=== PATIENT | male | born 1960 | race Caucasian/White ===

== ENCOUNTER 2022-03-28 09:43 | Outpatient (CLI) | payer OTHER, SELFPAY ==
[2022-03-28 14:05] LABS: C Reactive Protein* 6.5 mg/dL (0.5-1.0)
[2022-03-28 14:43] LABS: Erythrocyte SedimentationRate* 63 mm/hr (2-15)
== END 2022-03-28 09:44 | disposition home or self-care (01) ==
LOC: KYNREF 09:47
PROVIDERS: PCP Nurse Practitioner Family; Visit Provider Nurse Practitioner Family
DX: M25.50 Pain in unspecified joint (principal); M79.10 Myalgia, unspecified site
CPT/HCPCS: 36415; 85651; 86140

== ENCOUNTER 2022-06-18 15:51 | Emergency (ER) | payer OTHER, SELFPAY ==
[2022-06-18] VITALS (25 sets, daily range): BP systolic 115–141; BP diastolic 89–124; PULSE 104–163; RESP 22; TEMP 36; O2SAT 94–97; BMI 34.2
--- NOTE | 2022-06-18 16:14 | CRLHL7_ITS ---
For Patients: As a result of the Cures Act, medical imaging exams and procedure reports are released immediately into your electronic medical record. You may view this report before your referring provider. If you have questions, please contact your health care provider. INDICATION: Syncope TECHNIQUE: Chest radiograph 2 views COMPARISON: 10/27/2010 FINDINGS: Cardiac silhouette enlarged, similar contour from October 2010. Mediastinal and perihilar contours unchanged. No new focal lung opacities. Costophrenic sulci clear. Bones and soft tissues unremarkable. IMPRESSION: 1. Persistent cardiomegaly. No underlying CHF pattern on current study. No focal infiltrates. Dictated by Damion Reyes MD @ 06/18/2022 5:39:48 PM Dictated by: Damion Reyes MD @ 06/18/2022 17:39:54 (Electronically Signed)
--- NOTE | 2022-06-18 16:31 | ED_ITS ---
HPI - Arrhythmia/Palpitations General Date Seen: 06/18/22 Chief Complaint: Arrhythmia/Palpitations Stated Complaint: possible afib Time Seen by Provider: 06/18/22 15:57 Source: patient and family Mode of arrival: ambulatory Limitations: no limitations History of Present Illness HPI narrative: Patient is 61-year-old gentleman with a previous history of atrial fibrillation, not on any anticoagulation presents here with probably a week-long history of a cough some mild shortness of breath, this is acute for him usually that he has is AFib, but today he noticed that his heart rate was little elevated when he did his blood pressure. His previous days he did not notice this. He has had the shortness of breath when he exerts himself for approximately 1 week and also the cough, but multiple other family members have a slight cough any wondered if this was the reason. He has had previous cardioversion [facility], and was on anticoagulation for some time but this was stopped. Sounds like he did have FABIENNE up there. Also had ablation done at [facility] to in the past. 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 Has not missed any medications, does not use alcohol, denies any dehydration, Related Data Home Medications Medication Instructions Recorded Confirmed candesartan 4 mg tablet 4 mg PO 11/24/21 03/28/22 sildenafil 100 mg tablet 100 mg PO 11/24/21 03/28/22 torsemide 20 mg tablet 20 mg PO DAILY 11/24/21 03/28/22 metoprolol succinate 50 mg 50 mg PO 03/28/22 03/28/22 tablet,extended release 24 hr Allergies Allergy/AdvReac Type Severity Reaction Status Date / Time hydrochlorothiazide Allergy Verified 06/18/22 15:55 hydroxychloroquine Allergy Verified 06/18/22 15:55 lisinopril Allergy Verified 06/18/22 15:55 ragweed pollen Allergy Verified 06/18/22 15:55 triamterene Allergy Verified 06/18/22 15:55 Review of Systems Status of ROS: Reports: 10 or more systems reviewed and unremarkable except as noted in History and below PFSH PFSH Social History Smoking Status: Former smoker Do you use any of these nicotine containing products: None Second hand tobacco smoke exposure: No How often do you have a drink containing alcohol: 2-4 times a month How many standard drinks containing alcohol do you have on a typical day: 1 or 2 How often do you have six or more drinks on one occasion: Never AUDIT-C Alcohol total score: 2 Non-prescribed substance use: denies use service: No Exam Narrative: Exam Narrative: Patient is speaking normally, no problem with slurring words, oriented x3. Head eyes ears nose and throat exam show equal pupils, no scleral icterus, extraocular muscles are normal, no facial droop, speech is normal, trachea normal and midline. Thyroid normal midline palpable not enlarged. Chest shows symmetrical rise bilaterally, normal auscultation with no wheezes, no increased work of breathing, no overt bruising or lesions seen, no tenderness is noted on auscultation. Heart sounds normal with no S3-S4 no murmurs clicks or gallops. Abdomen shows no obvious masses or hepatosplenomegaly, no organomegaly, bowel sounds are normal in all quadrants. No tenderness is noted also in all quadrants. Upper and lower extremities show normal power, normal range of motion, pulses are normal, sensations normal, fine motor movements are normal, pelvis is stable to rocking. Cervical spine shows normal range of motion, and palpably not tender. Thoracic spine shows normal range of motion, and palpably not tender, lumbar spine shows no tenderness to palpation percussion and is otherwise normal range of motion. Skin shows no rashes, petechiae or eccymosis. Const: Vital Signs, click to edit/add: Vital Signs - 24 hr 06/18/22 15:55 06/18/22 18:12 06/18/22 16:21 Temperature 96.8 F L Pulse Rate 142 H 134 H Pulse Rate [Apical ] 158 H Respiratory Rate 22 Blood Pressure Blood Pressure [Le ft Upper Arm] 115/101 H Pulse Oximetry 97 Oxygen Delivery Me thod Room Air 06/18/22 16:30 06/18/22 16:35 06/18/22 16:45 Temperature Pulse Rate 163 H 152 H 150 H Pulse Rate [Apical ] Respiratory Rate Blood Pressure 120/101 H Blood Pressure [Le ft Upper Arm] Pulse Oximetry 95 95 96 Oxygen Delivery Me thod 06/18/22 17:00 06/18/22 17:02 06/18/22 17:15 Temperature Pulse Rate 133 H 139 H Pulse Rate [Apical ] Respiratory Rate Blood Pressure 119/107 H Blood Pressure [Le ft Upper Arm] Pulse Oximetry 95 97 Oxygen Delivery Me thod 06/18/22 17:30 06/18/22 17:32 06/18/22 17:45 Temperature Pulse Rate 123 H 104 H 128 H Pulse Rate [Apical ] Respiratory Rate Blood Pressure 120/89 Blood Pressure [Le ft Upper Arm] Pulse Oximetry 96 96 95 Oxygen Delivery Me thod 06/18/22 18:00 06/18/22 18:02 06/18/22 18:15 Temperature Pulse Rate 130 H 119 H 135 H Pulse Rate [Apical ] Respiratory Rate Blood Pressure 133/96 H Blood Pressure [Le ft Upper Arm] Pulse Oximetry 94 95 96 Oxygen Delivery Me thod Documenting provider has reviewed patient's vital signs: yes Course Course Hospital Course: Explained to the patient is , we do not do T ease here, instead we can do rate control, given his time course that I do not think he is a good candidate least at this time as there is no emergent need to do cardioversion. Would suggest workup and then I can talk to [facility], where he gets his cardiology at that point about disposition. Him and his for initially thinking they may want to just go to [facility], explained this would be against medical advice, and then they changed their mind and said they would stay. Reevaluation(s) Reevaluation #1: Patient is 1. On the waiting list for [facility], although this can change, this is good news. Time: 17:33 Reevaluation #2: Patient is been accepted to [facility], I discussed the case with the hospitalist. Consultations Consultation #1: Case was discussed with from [facility], she informed me that the last time when he had was in atrial fibrillation he developed a cardiomyopathy, and he would be better suited, to be cardioverted earlier than later secondary to this being known. She recommended the starting him on heparin, giving him a little digoxin also, keeping him on the beta- edmond and giving him oral beta-edmond with that, and transferring a up to [facility] when a bed becomes available for FABIENNE and cardioversion. Discussed with the patient, they are on board for this. Time: 17:16 Vital Signs Vital signs: Initial Vital Signs Temperature 96.8 F L 06/18/22 15:55 Temperature Source Temporal Artery Scan 06/18/22 15:55 Pulse Rate 158 H 06/18/22 15:55 Pulse Rhythm 06/18/22 15:55 Respiratory Rate 22 06/18/22 15:55 Blood Pressure 115/101 H 06/18/22 15:55 Blood Pressure Mean 105 06/18/22 15:55 Blood Pressure Position Supine 06/18/22 15:55 Oxygen Delivery Method 06/18/22 15:55 Vital Signs Temperature 96.8 F L 06/18/22 15:55 Pulse Rate 158 H 06/18/22 15:55 Respiratory Rate 22 06/18/22 15:55 Blood Pressure 115/101 H 06/18/22 15:55 Oxygen Delivery Method 06/18/22 15:55 Temperature 96.8 F L 06/18/22 15:55 Pulse Rate 135 H 06/18/22 18:15 Respiratory Rate 22 06/18/22 15:55 Blood Pressure 133/96 H 06/18/22 18:02 Pulse Oximetry 96 06/18/22 18:15 Oxygen Delivery Method 06/18/22 15:55 MDM - Arrhythmia/Palpitations MDM Narrative Medical decision making narrative: Differential diagnosis includes but is not limited to psychosocial stress, thyroid abnormalities, CHF, SVT, atrial fibrillation, ventricular tachycardia and ventricular fibrillation. This includes the life-threatening complications of heart failure, V-tach, and VFib Medical Records Attestation: I reviewed the patient's medical records. Lab Data Attestation: I reviewed the patient's lab results. Labs: Lab Results 06/18/22 06/18/22 06/18/22 Range/Units 16:34 16:34 16:34 WBC 8.11 (4.50-11.00) K/uL RBC 4.79 (4.30-5.90) m/uL Hgb 13.6 (13.5-17.5) gm/dL Hct 41.8 (37.0-53.0) % MCV 87 (80-100) fL MCH 28 (26-34) pg MCHC 33 (32-36) gm/dL RDW Coeff of [place] 13.8 (11.5-15.5) % Plt Count 324 (140-440) K/uL Neut % (Auto) 67.4 (42.0-72.0) % Lymph % (Auto) 19.4 L (20-44) % Stafford % (Auto) 11.2 H (0.0-11.0) % Eos % (Auto) 1.2 (0.0-7.0) % Baso % (Auto) 0.2 (0.0-3.0) % Neut # (Auto) 5.46 (1.7-7.0) K/uL Lymph # (Auto) 1.60 (0.90-2.90) K/uL Stafford # (Auto) 0.90 (0.00-0.90) K/UL Eos # (Auto) 0.10 (0.00-0.50) K/uL Baso # (Auto) 0.02 (0.00-0.30) K/uL INR 1.07 (0.91-1.10) APTT 30 (23-33) Seconds D-Dimer Quant (PE/DVT) 0.85 H (0.00-0.50) ug/ml Sodium 141 (135-149) mmol/L Potassium 3.7 (3.6-5.1) mmol/L Chloride 104 (96-114) mmol/L Carbon Dioxide 29 (20-32) mmol/L BUN 25 (7-30) mg/dL Creatinine 1.0 (0.5-1.5) mg/dL Estimated Creat Clear 85.14 Estimated GFR 86 ml/min Glucose 126 H (60-115) mg/dL Calcium 8.7 (8.4-10.6) mg/dL Magnesium (1.5-2.6) mg/dL NT-Pro-B Natriuret Pep 3350 pg/mL TSH (0.270-4.20) uIU/mL SARS-CoV-2 (PCR) (Negative) Influenza Type A (PCR) (Negative) Influenza Type B (PCR) (Negative) RSV (PCR) (Negative) POC Troponin I (0.01-0.04) ng/ml 06/18/22 06/18/22 06/18/22 Range/Units 16:34 16:34 16:34 WBC (4.50-11.00) K/uL RBC (4.30-5.90) m/uL Hgb (13.5-17.5) gm/dL Hct (37.0-53.0) % MCV (80-100) fL MCH (26-34) pg MCHC (32-36) gm/dL RDW Coeff of [place] (11.5-15.5) % Plt Count (140-440) K/uL Neut % (Auto) (42.0-72.0) % Lymph % (Auto) (20-44) % Stafford % (Auto) (0.0-11.0) % Eos % (Auto) (0.0-7.0) % Baso % (Auto) (0.0-3.0) % Neut # (Auto) (1.7-7.0) K/uL Lymph # (Auto) (0.90-2.90) K/uL Stafford # (Auto) (0.00-0.90) K/UL Eos # (Auto) (0.00-0.50) K/uL Baso # (Auto) (0.00-0.30) K/uL INR (0.91-1.10) APTT (23-33) Seconds D-Dimer Quant (PE/DVT) (0.00-0.50) ug/ml Sodium (135-149) mmol/L Potassium (3.6-5.1) mmol/L Chloride (96-114) mmol/L Carbon Dioxide (20-32) mmol/L BUN (7-30) mg/dL Creatinine (0.5-1.5) mg/dL Estimated Creat Clear Estimated GFR ml/min Glucose (60-115) mg/dL Calcium (8.4-10.6) mg/dL Magnesium 2.3 (1.5-2.6) mg/dL NT-Pro-B Natriuret Pep pg/mL TSH 2.310 (0.270-4.20) uIU/mL SARS-CoV-2 (PCR) (Negative) Influenza Type A (PCR) (Negative) Influenza Type B (PCR) (Negative) RSV (PCR) (Negative) POC Troponin I 0.01 (0.01-0.04) ng/ml 06/18/22 Range/Units 16:43 WBC (4.50-11.00) K/uL RBC (4.30-5.90) m/uL Hgb (13.5-17.5) gm/dL Hct (37.0-53.0) % MCV (80-100) fL MCH (26-34) pg MCHC (32-36) gm/dL RDW Coeff of [place] (11.5-15.5) % Plt Count (140-440) K/uL Neut % (Auto) (42.0-72.0) % Lymph % (Auto) (20-44) % Stafford % (Auto) (0.0-11.0) % Eos % (Auto) (0.0-7.0) % Baso % (Auto) (0.0-3.0) % Neut # (Auto) (1.7-7.0) K/uL Lymph # (Auto) (0.90-2.90) K/uL Stafford # (Auto) (0.00-0.90) K/UL Eos # (Auto) (0.00-0.50) K/uL Baso # (Auto) (0.00-0.30) K/uL INR (0.91-1.10) APTT (23-33) Seconds D-Dimer Quant (PE/DVT) (0.00-0.50) ug/ml Sodium (135-149) mmol/L Potassium (3.6-5.1) mmol/L Chloride (96-114) mmol/L Carbon Dioxide (20-32) mmol/L BUN (7-30) mg/dL Creatinine (0.5-1.5) mg/dL Estimated Creat Clear Estimated GFR ml/min Glucose (60-115) mg/dL Calcium (8.4-10.6) mg/dL Magnesium (1.5-2.6) mg/dL NT-Pro-B Natriuret Pep pg/mL TSH (0.270-4.20) uIU/mL SARS-CoV-2 (PCR) Negative SARS-CoV-2 (Negative) Influenza Type A (PCR) Negative PCR FLU A (Negative) Influenza Type B (PCR) Negative PCR FLU B (Negative) RSV (PCR) Negative PCR RSV (Negative) POC Troponin I (0.01-0.04) ng/ml Imaging Data Chest x-ray: Attestation: I have reviewed the pertinent imaging results. My impression: Cardiomegaly no acute findings Radiologist's impression: Patient: EDISON OLIVARES Facility: [facility] Site . Site : 1960 Study: XRay Chest 2 VIEW-06/18/2022 5:12:36 PM Ordering Physician: Jennifer Perales Final Report: INDICATION: Syncope TECHNIQUE: Chest radiograph 2 views COMPARISON: 10/27/2010 FINDINGS: Cardiac silhouette enlarged, similar contour from October 2010. Mediastinal and perihilar contours unchanged. No new focal lung opacities. Costophrenic sulci clear. Bones and soft tissues unremarkable. IMPRESSION: 1. Persistent cardiomegaly. No underlying CHF pattern on current study. No focal infiltrates. Dictated by Damion Reyes MD @ 06/18/2022 5:39:48 PM Dictated by: Damion Reyes MD @ 06/18/2022 17:39:54 (Electronic Signature) ECG Data Attestation: I personally reviewed and interpreted this ECG as follows: ECG interpretation date: 06/18/22 ECG interpretation time: 16:35 Interpretation: Occasional PVCs at 160, no acute ST wave changes, no old EKG to compare to Critical Care Time Critical Care Time Critical Care Time: Yes Attestation: The patient required my highest level preparedness to intervene emergently and I personally spent this critical care time directly and personally managing the patient. This critical care time included: Obtaining a history; Examining the patient; Pulse oximetry; Ordering and reviewing of studies; Arranging urgent treatment with development of a management plan; Evaluation of patients response to treatment; Frequent reassessment discussions with other providers. This critical care time was performed to assess and manage the high probability of imminent life-threatening deterioration that could result in multiorgan failure. It was exclusive of separate billable procedures and treating other patients and teaching time. Total Critical Care Time in Minutes: 45 Discharge Plan Discharge Clinical Impression: Cardiomyopathy, Atrial fibrillation with rapid ventricular response Patient Disposition: Xfer [facility] Discharge Location: [facility] Prescriptions: No Action torsemide 20 mg tablet 20 mg PO DAILY Label Comments: TAKE ONE TABLET BY MOUTH ONE TIME DAILY candesartan 4 mg tablet 4 mg PO Label Comments: TAKE ONE TABLET BY MOUTH ONE TIME DAILY sildenafil 100 mg tablet 100 mg PO Label Comments: TAKE 1 TABLET BY MOUTH NEEDED ONE HOUR PRIOR TO INTERCOURSE metoprolol succinate 50 mg tablet extended release 24 hr 50 mg PO Label Comments: TAKE ONE TABLET BY MOUTH ONE TIME DAILY IN THE evening Stand Alone Forms: [employer] Info Instructions
[2022-06-18 16:43] LABS: Basophils Absolute Auto 0.02 K/uL (0.00-0.30); Basophils Percent Auto 0.2 % (0.0-3.0); Eosinophils Percent Auto 1.2 % (0.0-7.0); Hematocrit 41.8 % (37.0-53.0); Hemoglobin* 13.6 gm/dL (13.5-17.5); Immature Granulocytes Abs Auto 0.05 K/uL (0.00-0.30); Immature Granulocytes Pct Auto 0.6 %; Lymphocytes Percent Auto 19.4 % (20-44); Mean Corpuscular HGB Conc 33 gm/dL (32-36); Mean Corpuscular Hemoglobin 28 pg (26-34); Mean Corpuscular Volume 87 fL (80-100); Monocytes Percent Auto 11.2 % (0.0-11.0); Neutrophils Absolute Auto 5.46 K/uL (1.7-7.0); Neutrophils Percent Auto 67.4 % (42.0-72.0); Platelet Count* 324 K/uL (140-440); RDW Coefficient of Variation % 13.8 % (11.5-15.5); Red Blood Count 4.79 m/uL (4.30-5.90); Slide Review Reflex No; White Blood Count* 8.11 K/uL (4.50-11.00)
[2022-06-18] MEDS: 0.9 % SODIUM CHLORIDE 1000 ml 1,000 ML IV (16:45)
[2022-06-18] MEDS: METOPROLOL TARTRATE 1 MG/ML inj 10 MG IVP (16:45)
[2022-06-18 17:02] LABS: Chloride* 104 mmol/L (96-114); Potassium* 3.7 mmol/L (3.6-5.1); Sodium* 141 mmol/L (135-149)
[2022-06-18 17:03] LABS: INR 1.07 (0.91-1.10); Prothrombin Time 14.6 Seconds
[2022-06-18 17:04] LABS: Partial Thromboplastin Time* 30 Seconds (23-33)
[2022-06-18 17:05] LABS: Blood Urea Nitrogen* 25 mg/dL (7-30); Carbon Dioxide* 29 mmol/L (20-32); Est. Creatinine Clearance* 85.14; Estimated Glomerular Filt Rate 86 ml/min; Magnesium* 2.3 mg/dL (1.5-2.6); Troponin, Point-of-Care* 0.01 ng/ml (0.01-0.04)
[2022-06-18 17:06] LABS: Calcium* 8.7 mg/dL (8.4-10.6); D Dimer Quantitative* 0.85 ug/ml (0.00-0.50); Glucose* 126 mg/dL (60-115)
[2022-06-18 17:15] LABS: NT Pro B Type NatriureticPept* 3350 pg/mL
--- NOTE | 2022-06-18 17:17 | ED.NURSE ---
Pt accepted to [facility]. Currently on waiting list.
[2022-06-18 17:37] LABS: PCR FLU A Negative PCR FLU A (Negative); PCR FLU B Negative PCR FLU B (Negative); PCR RSV Negative PCR RSV (Negative)
[2022-06-18 17:50] LABS: SARS PCR* Negative SARS-CoV-2 (Negative)
[2022-06-18] MEDS: HEPARIN 25,000 UNIT/500 ML BAG 20 UNIT IV (17:53)
[2022-06-18] MEDS: HEPARIN 5,000 UNIT/0.5 ML INJ 4000 UNIT IVP (17:54)
[2022-06-18] MEDS: DIGOXIN 250 MCG/ML inj 500 MCG IV (18:12)
[2022-06-18] MEDS: METOPROLOL TARTRATE 25 MG TABLET PO (18:14)
--- NOTE | 2022-06-18 18:28 | ED.NURSE ---
Digoxin administration delayed due to waiting on medication from pharmacy.
--- NOTE | 2022-06-18 20:01 | ED.NURSE ---
Called dispatch and set up ride for patient to [facility] [place]. Ambulance will be here in 20 min, transfer packet prepared. understands plan of care and harry room number for patient. will be up there tomorrow to visit patient. Report given to JENNIFER Dunn @ [facility] [place]. Mona in agreement with plan of care and knows last oral intake at 1400 today.
== END 2022-06-18 20:25 | disposition short-term general hospital (02) ==
PROVIDERS: Emergency Provider Family Medicine; PCP Nurse Practitioner Family
DX: I48.20 Chronic atrial fibrillation, unspecified (principal); I42.9 Cardiomyopathy, unspecified
CPT/HCPCS: 36415; 71046; 80048; 83735; 83880; 84443; 84484; 85025; 85379; 85610; 85730; 87502; 87634; 87635; 93005; 96374; 96375; 99285; 99291; A9270; J1160; J1644; J7030

== ENCOUNTER 2022-06-18 20:14 | Outpatient (CLI) | payer OTHER, SELFPAY | END 2022-06-18 20:15 | disposition home or self-care (01) | LOC: AMB 06-19 04:03 | PROVIDERS: PCP Nurse Practitioner Family; Visit Provider Family Medicine | DX: I48.91 Unspecified atrial fibrillation (principal); R06.02 Shortness of breath; R05.9 Cough, unspecified | CPT/HCPCS: A0425; A0434 ==

== ENCOUNTER 2022-11-01 10:20 | Day surgery (SDC) | payer OTHER, SELFPAY ==
--- NOTE | 2022-10-24 08:46 | SUR.PREOP ---
Pt's surgery for May postponed until 11/01/22 due to need for a colonoscopy. Did a brief phone visit today; he denies questions. He had his preop H&P yesterday with Rui Westbrook at [facility].
[2022-11-01] VITALS (35 sets, daily range): BP systolic 114–166; BP diastolic 71–98; PULSE 49–79; RESP 12–18; TEMP 36.6–37; O2SAT 90–97; BMI 34.9; BMI 33.6
[2022-11-01] MEDS: LACTATED RINGERS 1000 ML 1,000 ML 100 ML IV ×2 (10:30→12:40)
--- NOTE | 2022-11-01 10:48 | CRLHL7_ITS ---
For Patients: As a result of the Cures Act, medical imaging exams and procedure reports are released immediately into your electronic medical record. You may view this report before your referring provider. If you have questions, please contact your health care provider. Indication: POST OP Technique: Two views right knee Findings/Impression: Hardware from a right total knee arthroplasty is in satisfactory position. Bone alignment is normal. No sign of acute fracture. Postop changes are within normal limits. Dictated by Vincenzo Funk MD @ 11/01/2022 3:37:31 PM (Electronically Signed)
[2022-11-01] MEDS: OXYCODONE (CR) 10 MG TAB.ER.12H PO (11:06)
[2022-11-01] MEDS: ACETAMINOPHEN 500 MG TABLET 1000 MG PO ×2 (11:06→18:33)
[2022-11-01] MEDS: SODIUM CHLORIDE 0.9 % (FLUSH) 10 ML SYRINGE IVF (11:20)
[2022-11-01] MEDS: MIDAZOLAM HCL 1 MG/ML inj IVP (12:05)
[2022-11-01] MEDS: fentaNYL 100 MCG/2 ML inj IVP (12:05)
--- NOTE | 2022-11-01 12:08 | W.PM.NB ---
Nerve Block Nerve Block Time Seen by Provider: 12:06 Date Seen: 11/01/22 Type of block requested by surgeon for post-operative analgesia: adductor canal Time out performed: Yes Verification of patient name: Yes Verification of date of : Yes Site marking: site marked Name of person performing procedure: Kareem Continuous monitoring Was continuous monitoring of O2 sat, B/P, clinical research monitor, recorded every 15 minutes?: Yes Procedure Checklist: sterile prep, needles and gloves Ultrasound guided. Images saved: Yes Medications given in 5ml increments after negative aspiration: Ropivicaine %: 0.5 mL: 20 Needle gauge: 20 Decadron (mg): 10 Precedex (mcg): 25 Patient tolerated procedure well: Yes Additional comments: Needle noted adjacent to nerve Block Charges Block Charge (with Pro Fee): Femoral Nerve Use of Ultrasound Machine for Block: Yes- US Guidance/pain block
--- NOTE | 2022-11-01 12:09 | W.PM.NB ---
Nerve Block Nerve Block Time Seen by Provider: 12:07 Date Seen: 11/01/22 Type of block requested by surgeon for post-operative analgesia: geniculars Side: right Time out performed: Yes Verification of patient name: Yes Verification of date of : Yes Site marking: site marked Name of person performing procedure: Kareem Continuous monitoring Was continuous monitoring of O2 sat, B/P, air sampling and monitoring, recorded every 15 minutes?: Yes Procedure Checklist: sterile prep, needles and gloves Medications given in 5ml increments after negative aspiration: Ropivicaine %: 0.5 mL: 9 Needle gauge: 25 Patient tolerated procedure well: Yes Block Charges Block Charge (with Pro Fee): Genicular Nerve Block Use of Ultrasound Machine for Block: No
--- NOTE | 2022-11-01 12:10 | W.ANESCHARGE ---
Anesthesia Charges Start Date/Time Anesthesia Start Date: 11/01/22 Anesthesia Start Time: 12:12 Stop Date/Time Anesthesia Stop Date: 11/01/22 Anesthesia Stop Time: 14:42
--- NOTE | 2022-11-01 12:23 | SUR.PREOP ---
TIME?OUT:?1204 PT/RN/MDA?VERIFICATION?OF?SURGICAL?SITE,?PROCEDURE,?AND?CONSENT OBTAINED?PRIOR?TO?INVASIVE?PROCEDURE. All in agreement.
[2022-11-01] MEDS: CEFAZOLIN 2 GM in 0.9 % SODIUM CHLORIDE Mini-bag 100 ML IVPB ×2 (12:30→18:33)
[2022-11-01] MEDS: TRANEXAMIC ACID 100 MG/ML INJ 1000 MG IV (12:35)
--- NOTE | 2022-11-01 13:58 | PM.ORPRC ---
Procedure Note Date of procedure: 11/01/22 Procedure: PREOPERATIVE DIAGNOSIS: 1. Right knee osteoarthritis, primary, severe POSTOPERATIVE DIAGNOSIS: 1. Right knee osteoarthritis, primary, severe PROCEDURE: 1. Right total knee arthroplasty SURGEON: Burton Ramirez MD. TANK BUILDER SUPERVISOR: Farhana Warner PA-C; Tyree Casillas PA-C - Of note, a skilled captain's assistant was critical for this case to aid in patient positioning, tissue retraction, limb manipulation/positioning, and closure. ANESTHESIA: Spinal anesthetic IMPLANTS: DePuy J&J all cemented TKA - Attune PS femur size 7, size 7 tibia, 5 poly spacer, 41mm patella TOURNIQUET: 90 min at 300 torr EBL: 50 ml COMPLICATIONS: None evident INDICATIONS: The patient is a pleasant 61-year-old male who has experienced severe right knee pain and difficulty bearing weight. Workup included x-rays which revealed severe osteoarthrosis in the knee. Given the deformity, the dysfunction, and the pain, as well as the failure of nonoperative management, recommendation was made for surgery. FINDINGS: Moderate effusion upon entering the joint. Full-thickness chondral loss broadly throughout the lateral compartment and patellofemoral compartment. Concavity to the patella as well. Significantly soft cancellous bone encountered throughout the both the tibia and femur. A 15 mm in diameter intraosseous cyst was encountered in the posterior central tibia. An 8 mm diameter intraosseous cyst was encountered within the distal pole of the patella. DESCRIPTION OF PROCEDURE: Following a thorough discussion of risks, benefits, and alternatives consent was obtained and the right knee was marked. The patient was brought to the operating room and placed supine on the operating table. Induction of anesthesia was undertaken. 2 g IV Ancef and 1 g tranexamic acid was administered within 1 hr of incision preoperatively. Proper time-out was performed identifying proper patient, site, procedure. The operative extremity was prepped and draped in the appropriate sterile fashion using ChloraPrep after the patient was positioned supine with all bony prominences well padded. A longitudinal, anterior, midline skin incision was made starting approximately 3cm proximal to the superior pole of the patella and advanced distal to the tibial tubercle. A median parapatellar arthrotomy was created. A medial subperiosteal sleeve was created with knife, bowen elevator and curved osteotome. The retropatellar fatpad was resected and the synovium in the suprapatellar pouch excised to visualize the anterior femoral cortex. Femoral preparation was performed via an intramedullary guide. Step drill allowed access into the femoral canal. The distal cutting guide was placed with 6? of valgus and 11 mm cut on the distal femur. Femur was sized using a posterior referencing guide in 5 ? of external rotation. Of note, in addition the posterior condylar axis, we assessed the intercondylar axis and Whitesides line for rotational alignment. This found have a best fit with the sizing noted above. The 4 in 1 cutting block was then placed, and the distal femur shaped accordingly. The box cut was then created and the trial implant inserted to confirm appropriate fit. We turned our attention to the proximal tibia. Extramedullary guide was utilized for cutting with the goal of being 90 degree cut from the mechanical axis of the tibia in the varus/valgus plane utilizing tibial crest as the primary alignment. Initially a 2 mm resection was performed from the medial tibial plateau. An additional 2 mm to require resection. Ultimately, balancing was achieved in both flexion and extension in both varus and valgus. The knee was able to achieve full extension as well comfortably. The patella was initially measured and found have a thickness of 20 mm. It was resected back to approximately 14.5 mm. It was sized to be a best fit with as noted above. This was drilled, trial placed. All trials were placed and found to have an excellent stability and balance. At this stage, trial implants were removed, the knee was thoroughly irrigated with normal saline, and the cement was mixed. After irrigation, the knee was thoroughly dried, and cement placed, with the real tibial and femoral implants placed along with the patella. Trial poly spacer was placed and confirmed to have excellent range of motion and full extension, and the real poly spacer opened and inserted. All extra cement was removed, and a 3 min Betadine soak performed. Finally, a final irrigation round with normal saline was performed. Closure performed with 0 Vicryl and #0 Stratafix for the quad tendon/retinaculum. 2-0 Vicryl for the subcutaneous and 4-0 Stratafix for subcuticular closure. Dressings were applied and the patient was awoken from anesthesia after the tourniquet deflated and transferred the PACU in stable condition. A skilled captain's assistant was critical for this case to aid in patient positioning, tissue retraction, bone exposure, limb manipulation/positioning, patient safety, and closure. PLAN: 1. Weight bear as tolerated operative extremity. 2. 23 hr perioperative antibiotics. 3. Ice. 4. PT/OT consults for ambulation assistance/mobility education. 5. Social work consult for discharge planning. [facility] and Carlos (a preoperative medication he is taking)
--- NOTE | 2022-11-01 14:47 | W.ANESCHARGE ---
Anesthesia Charges Start Date/Time Anesthesia Start Date: 11/01/22 Anesthesia Start Time: 12:12 Stop Date/Time Anesthesia Stop Date: 11/01/22 Anesthesia Stop Time: 14:47
--- NOTE | 2022-11-01 15:10 | PM.IMPN1 ---
Progress Note: A&P Assessment and plan (1) History of atrial fibrillation: Status: Acute (2) PMR (polymyalgia rheumatica): Status: Acute (3) Osteoarthritis of right knee: Problem details: Severe Status: Chronic Plan 1. s/p RTKA -pain control; diet, dvt ppx per surgery 2. Hx of PMR 3. Hx of CAD/HTN/Hx of Diastolic CHF, EF 55% -continue eliquis -continue metoprolol with hold parameters -continue torsemide -continue candesartan 4. Hx of Atrial Fibrillation -on eliquis; metoprolol for rate control 5. Hx of BRYCE -continue cpap 6. Hx of Esophagitis -continue PPI 7. Hx of ZARINA -resum iron supplement at discharge Subjective Date Seen: 11/01/22 Interval history: PROCEDURE: 1.? Right total knee arthroplasty ANESTHESIA:? Spinal anesthetic EBL: ? 50 ml the patient is stable after surgery denies cp, sob, nausea, vomiting knee pain 6/10 hx of BRYCE; has cpap Exam Narrative: Exam Narrative: Gen: no acute distress HEENT: NCAT EOMI mmm CV: IRIR; bradycardic normal s1 s2 Lungs: CTAB Abd: Soft,nt, nd Neuro: Alert, oriented, CN grossly intact; nonfocal screening?exam Psych: appropriate affect MSK: age appropriate muscle mass Skin; Warm, dry no rash on face Const: Vital Signs, click to edit/add: Vital Signs - 24 hr 11/01/22 11:43 11/01/22 12:09 11/01/22 14:42 Temperature 98.6 F 98.1 F Pulse Rate 60 59 L 56 L Respiratory Rate 16 16 18 Blood Pressure 148/81 H 130/77 115/73 Pulse Oximetry 95 95 96 Oxygen Delivery Me thod Room Air Nasal Cannula Oxygen Flow Rate 2 11/01/22 14:48 11/01/22 14:49 11/01/22 14:50 Temperature Pulse Rate 52 L 57 L 52 L Respiratory Rate Blood Pressure Pulse Oximetry 92 94 94 Oxygen Delivery Me thod Room Air Oxygen Flow Rate 11/01/22 14:51 11/01/22 14:52 11/01/22 14:53 Temperature Pulse Rate 53 L 51 L 51 L Respiratory Rate Blood Pressure 114/72 Pulse Oximetry 95 94 91 Oxygen Delivery Me thod Room Air Oxygen Flow Rate 11/01/22 14:54 11/01/22 14:55 11/01/22 14:56 Temperature Pulse Rate 55 L 52 L 55 L Respiratory Rate Blood Pressure Pulse Oximetry 94 94 93 Oxygen Delivery Me thod Oxygen Flow Rate 11/01/22 14:57 11/01/22 14:58 11/01/22 14:59 Temperature Pulse Rate 51 L 54 L 56 L Respiratory Rate Blood Pressure 114/71 Pulse Oximetry 93 92 91 Oxygen Delivery Me thod Oxygen Flow Rate 11/01/22 15:00 11/01/22 15:01 11/01/22 15:02 Temperature Pulse Rate 54 L 52 L 52 L Respiratory Rate Blood Pressure 127/74 Pulse Oximetry 94 94 94 Oxygen Delivery Me thod Oxygen Flow Rate 11/01/22 15:03 11/01/22 15:04 11/01/22 15:05 Temperature 97.8 F Pulse Rate 51 L 52 L 54 L Respiratory Rate 18 Blood Pressure 128/77 Pulse Oximetry 93 93 93 Oxygen Delivery Me thod Room Air Oxygen Flow Rate
--- NOTE | 2022-11-01 15:40 | RESP.RT ---
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 Machine, tubing, cord, nasal mask, found to be clean and in good working order.
[2022-11-01] MEDS: LACTATED RINGERS 1000 ML 1,000 ML 75 ML IV (16:46)
[2022-11-01] MEDS: OXYCODONE 5 MG TABLET PO ×2 (16:46→20:13)
[2022-11-01] MEDS: SENNOSIDES 1 TAB TABLET 2 TAB PO (21:19)
[2022-11-02 00:05] VITALS: BP 132/75; PULSE 56; PULSE 66; RESP 16; TEMP 36.6; O2SAT 94
[2022-11-02] MEDS: ACETAMINOPHEN 500 MG TABLET 1000 MG PO ×2 (00:11→05:47)
[2022-11-02] MEDS: OXYCODONE 5 MG TABLET PO ×5 (00:12→10:34)
[2022-11-02] MEDS: CEFAZOLIN 2 GM in 0.9 % SODIUM CHLORIDE Mini-bag 100 ML IVPB ×2 (02:17→09:57)
[2022-11-02 02:30] VITALS: BP 130/77; PULSE 53; RESP 14; TEMP 36.7; O2SAT 94
[2022-11-02 06:19] LABS: Basophils Percent Auto 0.1 % (0.0-3.0); Hematocrit 34.2 % (37.0-53.0); Hemoglobin* 10.9 gm/dL (13.5-17.5); Immature Granulocytes Pct Auto 0.4 %; Lymphocytes Percent Auto 5.3 % (20-44); Mean Corpuscular HGB Conc 32 gm/dL (32-36); Mean Corpuscular Hemoglobin 28 pg (26-34); Mean Corpuscular Volume 88 fL (80-100); Monocytes Percent Auto 6.7 % (0.0-11.0); Neutrophils Percent Auto 87.5 % (42.0-72.0); Platelet Count* 282 K/uL (140-440); RDW Coefficient of Variation % 12.8 % (11.5-15.5); Red Blood Count 3.88 m/uL (4.30-5.90); White Blood Count* 14.29 K/uL (4.50-11.00)
[2022-11-02 06:23] LABS: Slide Review Reflex No
--- NOTE | 2022-11-02 06:32 | PC.NURSE ---
Pt alert and oriented x3. Afebrile. Pt denies, SOB, chest pain, and N/V. Pt reports 7/10 pain in right?knee, pain managed with PRN and scheduled medications. Pt left knee dressing is CDI. Pt is up SBA with walker and gait belt. Pt is tolerating a regular diet and voiding. Pt slept throughout most of night. Night uneventful.?
[2022-11-02 06:44] LABS: Sodium* 135 mmol/L (135-149)
[2022-11-02 06:48] LABS: Blood Urea Nitrogen* 22 mg/dL (7-30); Creatinine* 0.8 mg/dL (0.5-1.5); Est. Creatinine Clearance* 85.14; Estimated Glomerular Filt Rate 101 ml/min
[2022-11-02 07:00] VITALS: BP 135/81; PULSE 66; RESP 14; TEMP 36.8; O2SAT 95
[2022-11-02] MEDS: SENNOSIDES 1 TAB TABLET 2 TAB PO (08:29)
[2022-11-02] MEDS: METOPROLOL SUCCINATE (XL) 50 MG TAB PO (08:29)
[2022-11-02] MEDS: APIXABAN 5 MG TABLET PO (08:29)
[2022-11-02 09:39] VITALS: BP 140/90; PULSE 50; RESP 14; TEMP 36.8
[2022-11-02] MEDS: TORSEMIDE 20 MG TABLET PO (09:58)
[2022-11-02 10:35] VITALS: BP 131/70; PULSE 71; RESP 14; TEMP 36.7; O2SAT 93
--- NOTE | 2022-11-02 11:05 | PC.NURSE ---
Patient vitally stable. All concerns addressed. Patient discharged to home with .
--- NOTE | 2022-11-02 16:33 | PM.ORPN ---
Subjective Subjective Date Seen: 11/02/22 Principal diagnosis: Status postop day 1 right total knee arthroplasty Interval history: Patient reports doing well. No acute events over night. Complaining of pain and muscle spasms along the right knee. Pain managed with scheduled and PRN medications, ice. DVT prophylaxis: Eliquis, chronic medication for patient, bilateral knee high Ken stockings, SCDs, walking. Denies fevers, chills, aches, N/V, CP, SOB/SHORE, or lightheadedness. PROCEDURE: 1.? Right total knee arthroplasty ANESTHESIA:? Spinal anesthetic EBL: ? 50 ml the patient is stable after surgery denies cp, sob, nausea, vomiting knee pain 6/10 hx of BRYCE; has cpap Ortho Exam Narrative Exam Narrative: -Patient appears comfortable; no apparent acute distress -Alert and oriented times 3 -He is using the urinal in bed -Operative knee moderately swollen; soft tissues supple; no ecchymosis; no erythematous streaking Warmth appropriate. Generalized bilateral ankle edema -Surgical dressing clean, dry, intact; no drainage -Bilateral calfs soft; no significant swelling, edema, tenderness, erythema, discoloration, warmth, or palpable cords -2+ DP/PT pulses, intact dermatomes and myotomes distally (5/5 strength) Const Vital Signs, click to edit/add: Vital Signs - 24 hr 11/01/22 17:25 11/01/22 17:44 11/01/22 18:25 Temperature 98.5 F 98.2 F Pulse Rate Pulse Rate [Pulse Oximeter] 55 L 52 L 73 Respiratory Rate 12 12 12 Blood Pressure Blood Pressure [Right Arm] 153/91 H 166/89 H 141/78 H Pulse Oximetry 95 97 93 Oxygen Delivery Method Room Air Room Air Room Air 11/01/22 19:25 11/01/22 20:25 11/01/22 21:25 Temperature 98.1 F 98.3 F 98.0 F Pulse Rate Pulse Rate [Pulse Oximeter] 62 79 66 Respiratory Rate 14 14 16 Blood Pressure Blood Pressure [Right Arm] 166/88 H 145/83 H 148/81 H Pulse Oximetry 90 92 93 Oxygen Delivery Method Room Air Room Air Room Air 11/02/22 00:05 11/02/22 00:05 11/02/22 00:05 Temperature 97.8 F Pulse Rate Pulse Rate [Pulse Oximeter] 66 56 L Respiratory Rate 16 16 Blood Pressure Blood Pressure [Right Arm] 132/75 Pulse Oximetry 94 94 Oxygen Delivery Method Room Air CPAP 11/02/22 02:30 11/02/22 07:00 11/02/22 07:00 Temperature 98.0 F Pulse Rate Pulse Rate [Pulse Oximeter] 53 L 66 Respiratory Rate 14 14 Blood Pressure Blood Pressure [Right Arm] 130/77 Pulse Oximetry 94 95 Oxygen Delivery Method CPAP 11/02/22 07:00 11/02/22 09:39 11/02/22 10:35 Temperature 98.2 F 98.2 F 98.1 F Pulse Rate 50 L Pulse Rate [Pulse Oximeter] 66 71 Respiratory Rate 14 14 14 Blood Pressure 140/90 H Blood Pressure [Right Arm] 135/81 131/70 Pulse Oximetry 95 93 Oxygen Delivery Method Room Air CPAP Room Air Assessment and Plan Assessment and plan (1) History of atrial fibrillation: Status: Acute (2) PMR (polymyalgia rheumatica): Status: Acute (3) Osteoarthritis of right knee: Problem details: Severe Status: Chronic (4) Status post total knee replacement, right: Problem details: POD 1 Status: Acute Plan - Complete 23 hour perioperative antibiotics. - PT/OT consult for education and assistance. - Social work consult for discharge planning - Prescribed analgesics as needed - DVT prophylaxis: Eliquis, bilateral knee high Ken Hose stockings and SCDs - Anticipation is for discharge to home with spouse today 11/02/2022 if the patient remains medically stable, pain is controlled, and they are safe with mobilization. He was strongly encouraged to be up and moving at least every hour, and not to remain in bed for numerous hours
== END 2022-11-02 11:05 | disposition home or self-care (01) ==
LOC: OR 10:21 → MEDSURG 10:24
PROVIDERS: PCP Nurse Practitioner Family; Visit Provider Orthopaedic Surgery Sports Medicine
PROC: (CPT 27447; principal; 2022-11-01 12:15)
DX: M17.11 Unilateral primary osteoarthritis, right knee (principal); G89.18 Other acute postprocedural pain; I48.91 Unspecified atrial fibrillation; G47.33 Obstructive sleep apnea (adult) (pediatric); M35.3 Polymyalgia rheumatica; Z79.01 Long term (current) use of anticoagulants; I11.0 Hypertensive heart disease with heart failure; I50.40 Unspecified combined systolic (congestive) and diastolic (congestive) heart failure; I25.10 Atherosclerotic heart disease of native coronary artery without angina pectoris
CPT/HCPCS: 27447; 01402; 36415; 64447; 64454; 73560; 76942; 82565; 84132; 84295; 84520; 85025; 97110; 97116; 97161; 97165; 97530; A9270; C1776; J0690; J1100; J2250; J2405; J2704; J2795; J3010; J7120

== ENCOUNTER 2022-12-28 16:15 | Outpatient (RCR) | payer OTHER, SELFPAY | END 2023-04-27 23:59 | disposition home or self-care (01) | PROVIDERS: PCP Nurse Practitioner Family; Visit Provider Orthopaedic Surgery Sports Medicine | DX: M17.12 Unilateral primary osteoarthritis, left knee (principal); Z96.653 Presence of artificial knee joint, bilateral; Z47.1 Aftercare following joint replacement surgery; R26.2 Difficulty in walking, not elsewhere classified; M25.662 Stiffness of left knee, not elsewhere classified; M25.562 Pain in left knee; Z51.89 Encounter for other specified aftercare | CPT/HCPCS: 97110; 97140; 97161; 97164 ==

== ENCOUNTER 2023-01-30 09:48 | Outpatient (CLI) | payer OTHER, SELFPAY | END 2023-01-30 09:49 | disposition home or self-care (01) | PROVIDERS: PCP Nurse Practitioner Family; Visit Provider Nurse Practitioner Family | DX: Z01.818 Encounter for other preprocedural examination (principal) | CPT/HCPCS: 80053; 85025 ==

== ENCOUNTER 2023-02-21 13:59 | Inpatient (IN) | payer OTHER, SELFPAY ==
[2023-02-21] VITALS (29 sets, daily range): BP systolic 68–149; BP diastolic 47–115; PULSE 70–150; RESP 12–25; TEMP 35.4–36.6; O2SAT 90–96; BMI 34.5
[2023-02-21] MEDS: ACETAMINOPHEN 500 MG TABLET 1000 MG PO ×3 (07:00→19:34)
[2023-02-21] MEDS: OXYCODONE (CR) 10 MG TAB.ER.12H PO (07:00)
[2023-02-21] MEDS: LACTATED RINGERS 1000 ML 1,000 ML 100 ML IV (07:30)
--- NOTE | 2023-02-21 07:32 | CRLHL7_ITS ---
For Patients: As a result of the Cures Act, medical imaging exams and procedure reports are released immediately into your electronic medical record. You may view this report before your referring provider. If you have questions, please contact your health care provider. Indication: POST OP Technique: Two views left knee Findings/Impression: Hardware from a left total knee arthroplasty is in satisfactory position. Bone alignment is normal. No sign of acute fracture. Postop changes are within normal limits. Dictated by Vincenzo Funk MD @ 02/21/2023 11:59:41 AM (Electronically Signed)
[2023-02-21] MEDS: dilTIAZem 5 MG/ML inj 10 MG IVP ×2 (08:37→08:55)
[2023-02-21] MEDS: fentaNYL 100 MCG/2 ML inj IVP (09:01)
[2023-02-21] MEDS: MIDAZOLAM HCL 1 MG/ML inj IVP (09:01)
[2023-02-21] MEDS: dilTIAZem HCL 125 MG in 0.9 % SODIUM CHLORIDE 100 ml 100 ML 10 MG IVPB (09:09)
--- NOTE | 2023-02-21 09:12 | SUR.PREOP ---
TIME?OUT:?0900 PT/RN/MDA?VERIFICATION?OF?SURGICAL?SITE,?PROCEDURE,?AND?CONSENT OBTAINED?PRIOR?TO?INVASIVE?PROCEDURE.
[2023-02-21] MEDS: TRANEXAMIC ACID 100 MG/ML INJ 1000 MG IV (09:20)
[2023-02-21] MEDS: CEFAZOLIN 2 GM in 0.9 % SODIUM CHLORIDE Mini-bag 100 ML IVPB ×3 (09:20→22:46)
--- NOTE | 2023-02-21 11:12 | W.ANESCHARGE ---
Anesthesia Charges Start Date/Time Anesthesia Start Date: 02/21/23 Anesthesia Start Time: 09:09 Stop Date/Time Anesthesia Stop Date: 02/21/23 Anesthesia Stop Time: 11:12
--- NOTE | 2023-02-21 11:20 | W.PM.NB ---
Nerve Block Nerve Block Time Seen by Provider: 09:02 Date Seen: 02/21/23 Type of block requested by surgeon for post-operative analgesia: adductor canal Side: left Time out performed: Yes Verification of patient name: Yes Verification of date of : Yes Site marking: site marked Name of person performing procedure: Kareem Continuous monitoring Was continuous monitoring of O2 sat, B/P, electronic device monitor, recorded every 15 minutes?: Yes Procedure Checklist: sterile prep, needles and gloves Ultrasound guided. Images saved: Yes Medications given in 5ml increments after negative aspiration: Ropivicaine %: 0.5 mL: 20 Needle gauge: 20 Decadron (mg): 10 Precedex (mcg): 25 Patient tolerated procedure well: Yes Additional comments: Needle noted adjacent to nerve Block Charges Block Charge (with Pro Fee): Femoral Nerve Use of Ultrasound Machine for Block: Yes- US Guidance/pain block
--- NOTE | 2023-02-21 11:20 | W.PM.NB ---
Nerve Block Nerve Block Time Seen by Provider: 09:02 Date Seen: 02/21/23 Type of block requested by surgeon for post-operative analgesia: geniculars Side: left Time out performed: Yes Verification of patient name: Yes Verification of date of : Yes Site marking: site marked Name of person performing procedure: Kareem Continuous monitoring Was continuous monitoring of O2 sat, B/P, electronic device monitor, recorded every 15 minutes?: Yes Procedure Checklist: sterile prep, needles and gloves Medications given in 5ml increments after negative aspiration: Ropivicaine %: 0.5 mL: 9 Needle gauge: 25 Patient tolerated procedure well: Yes Block Charges Block Charge (with Pro Fee): Genicular Nerve Block Use of Ultrasound Machine for Block: No
--- NOTE | 2023-02-21 11:20 | W.ANESCHARGE ---
Anesthesia Charges Start Date/Time Anesthesia Start Date: 02/21/23 Anesthesia Start Time: 09:09 Stop Date/Time Anesthesia Stop Date: 02/21/23 Anesthesia Stop Time: 11:12
--- NOTE | 2023-02-21 11:44 | W.PM.H&PU ---
History & Physical Update History & Physical Update H&P Reviewed and patient assessed: The following changes are noted below H&P Updates: This morning, the patient was found to be in atrial fibrillation with a rapid ventricular rate. Anesthesia was able to evaluate the patient and communicate with hospitalist team. It was felt safe that we could try beta-edmond and diltiazem drip to help lower the rate acknowledging the patient likely is in atrial fibrillation chronically. If this is successful, it was felt safe to proceed with the total knee replacement today. Indeed, the patient's rate decreased and he remained stable. We are planning to proceed with the left TKA.
--- NOTE | 2023-02-21 11:44 | PM.ORPRC ---
Procedure Note Date of procedure: 02/21/23 Procedure: PREOPERATIVE DIAGNOSIS: 1. Left knee osteoarthritis, primary, severe POSTOPERATIVE DIAGNOSIS: 1. Left knee osteoarthritis, primary, severe PROCEDURE: 1. Left total knee arthroplasty SURGEON: Burton Ramirez MD. PULL OUT OPERATOR: MARTITA De La O - Of note, a skilled child care center assistant director was critical for this case to aid in patient positioning, tissue retraction, limb manipulation/positioning, and closure. ANESTHESIA: Spinal anesthetic EBL: 50ml IMPLANTS: DePuy J&J all cemented TKA - Attune PS femur size 7, size 7 tibia, 5 poly spacer, 41mm patella TOURNIQUET: 90 min at 300 torr COMPLICATIONS: None evident INDICATIONS: The patient is a pleasant 62-year-old male who has experienced severe left knee pain and difficulty bearing weight. Workup included x-rays which revealed severe osteoarthrosis in the knee. Given the deformity, the dysfunction, and the pain, as well as the failure of nonoperative management, recommendation was made for surgery. FINDINGS: Significantly soft cancellous bone throughout all the bony structures that were worked on today in the distal femur, proximal tibia, and even patella. Moderate effusion upon entering the joint. Full-thickness chondral loss with large osteophytes all 3 compartments. DESCRIPTION OF PROCEDURE: Following a thorough discussion of risks, benefits, and alternatives consent was obtained and the left knee was marked. The patient was brought to the operating room and placed supine on the operating table. Induction of anesthesia was undertaken. 2 g IV Ancef and 1 g tranexamic acid was administered within 1 hr of incision preoperatively. Proper time-out was performed identifying proper patient, site, procedure. The operative extremity was prepped and draped in the appropriate sterile fashion using ChloraPrep after the patient was positioned supine with all bony prominences well padded. A longitudinal, anterior, midline skin incision was made starting approximately 3cm proximal to the superior pole of the patella and advanced distal to the tibial tubercle. A median parapatellar arthrotomy was created. A medial subperiosteal sleeve was created with knife, bowen elevator and curved osteotome. The retropatellar fatpad was resected and the synovium in the suprapatellar pouch excised to visualize the anterior femoral cortex. Femoral preparation was performed via an intramedullary guide. Step drill allowed access into the femoral canal. The distal cutting guide was placed with 6 ? of valgus and 11 mm cut on the distal femur. Femur was sized using a posterior referencing guide in 5 ? of external rotation. This found have a best fit with the sizing noted above. The 4 in 1 cutting block was then placed, and the distal femur shaped accordingly. The box cut was then created and the trial implant inserted to confirm appropriate fit. We turned our attention to the proximal tibia. Extramedullary guide was utilized for cutting with the goal of being 90 degree cut from the mechanical axis of the tibia in the varus/valgus plane utilizing tibial crest as the primary alignment. Initially a 2 mm resection was performed from the medial tibial plateau. Ultimately, balancing was achieved in both flexion and extension in both varus and valgus. The knee was able to achieve full extension as well comfortably. The patella was initially measured and found have a thickness of 20 mm. It was resected back to approximately 14 mm. It was sized to be a best fit with as noted above. This was drilled, trial placed. All trials were placed and found to have an excellent stability and balance. At this stage, trial implants were removed, the knee was thoroughly irrigated with normal saline, and the cement was mixed. After irrigation, the knee was thoroughly dried, and cement placed, with the real tibial and femoral implants placed along with the patella. Trial poly spacer was placed and confirmed to have excellent range of motion and full extension, and the real poly spacer opened and inserted. All extra cement was removed, and a 3 min Betadine soak performed. Finally, a final irrigation round with normal saline was performed. Closure performed with 0 PDS and #0 Stratafix for the quad tendon/retinaculum. 2-0 Vicryl/Stratafix for the subcutaneous and 4-0 Monocryl for subcuticular closure. Dressings were applied and the patient was awoken from anesthesia after the tourniquet deflated and transferred the PACU in stable condition. A skilled child care center assistant director was critical for this case to aid in patient positioning, tissue retraction, bone exposure, limb manipulation/positioning, patient safety, and closure. PLAN: 1. Weight bear as tolerated operative extremity. 2. 23 hr perioperative antibiotics. 3. Ice. 4. PT/OT consults for ambulation assistance/mobility education. 5. Social work consult for discharge planning. 6. DVT prophylaxis with at SCDs, Ken Hose, and aspirin twice daily.
--- NOTE | 2023-02-21 12:07 | W.ANESCHARGE ---
Anesthesia Charges Start Date/Time Anesthesia Start Date: 02/21/23 Anesthesia Start Time: 09:09 Stop Date/Time Anesthesia Stop Date: 02/21/23 Anesthesia Stop Time: 11:12
[2023-02-21] MEDS: LACTATED RINGERS 1000 ML 1,000 ML 75 ML IV (12:59)
[2023-02-21] MEDS: dilTIAZem 30 MG TABLET PO ×3 (13:25→16:03)
--- NOTE | 2023-02-21 13:51 | PM.IMCN1 ---
Date of Consult Patient: [facility] Patient Consult date: 02/21/23 Requesting Physician: Orthopedics Primary Care Provider: Mary Ulrich, KELLY, WAFFLE MACHINE OPERATOR Consult Narrative Reason for consult: Medical management of AFib with RVR Narrative: Sreedhar Stanley is a 62 year old male admitted to the hospital today for left total knee arthroplasty. Patient has longstanding history of atrial fibrillation having undergone previous cardioversions and ablation in 2019. He did have an episode of AFib in May of this year and underwent FABIENNE with cardioversion. He has subsequently been on apixaban 5 mg b.i.d. and metoprolol 50 mg daily. When he presented for surgery today he was in AFib with RVR and a rate around 150. He went through surgery on a diltiazem drip with good rate control. His transfer to the floor on the diltiazem drip at 5 milligrams/hour with good rate control and adequate blood pressure. He reports being very compliant with his medications. He was on apixaban until his last dose Sunday morning, 4 days ago, pending surgery today. He has been taking metoprolol SR 50 mg daily but did not take this morning's dose. He has been asymptomatic with AFib in the past and is currently asymptomatic with his AFib in RVR. He has no idea when it began. No chest pain and no exertional dyspnea or lightheadedness. Postoperatively reports feeling well he has no other health concerns. Had his other knee replaced for months ago. Had an uncomplicated recovery from that surgery. He had an echocardiogram before his last surgery, 09/25/2022. This showed an ejection fraction of 55%, mildly enlarged left atrium, mildly enlarged right ventricle cavity with normal right ventricular function. No significant valvular disease. Review of Systems Narrative: Patient reports feeling well except as noted above. He had manageable constipation after his last surgery. Pain management was good at that time. He has had no previous history of DVT. [facility] Medical History (Updated 02/21/23 @ 14:24 by Amos Mcgraw MD) Iron deficiency anemia ?D50.9 - Iron deficiency anemia, unspecified (ICD-10) Anemia ?D64.9 - Anemia, unspecified (ICD-10) History of atrial fibrillation ?Z86.79 - Personal history of other diseases of the circulatory system (ICD-10) PMR (polymyalgia rheumatica) ?M35.3 - Polymyalgia rheumatica (ICD-10) Food intolerance ?K90.49 - Malabsorption due to intolerance, not elsewhere classified (ICD-10) Dairy product intolerance ?K90.49 - Malabsorption due to intolerance, not elsewhere classified (ICD-10) Acute on chronic diastolic congestive heart failure ?I50.33 - Acute on chronic diastolic (congestive) heart failure (ICD-10) History of peripheral edema ?Z87.898 - Personal history of other specified conditions (ICD-10) History of cardiomyopathy ?Z86.79 - Personal history of other diseases of the circulatory system (ICD-10) Coronary artery disease ?I25.10 - Atherosclerotic heart disease of [place] coronary artery without angina pectoris (ICD-10) Complication of statin therapy ?T46.6X5A - Adverse effect of antihyperlipidemic and antiarteriosclerotic drugs, initial encounter (ICD-10) Aortic root dilatation ?I77.810 - Thoracic aortic ectasia (ICD-10) History of cardioversion ?Z92.89 - Personal history of other medical treatment (ICD-10) Sleep apnea ?G47.30 - Sleep apnea, unspecified (ICD-10) Hypertension ?I10 - Essential (primary) hypertension (ICD-10) Surgical History (Updated 02/21/23 @ 14:24 by Amos Mcgraw MD) History of arthroplasty of left knee ?Z96.652 - Presence of left artificial knee joint (ICD-10) History of total right knee replacement (11/01/22) ?Z96.651 - Presence of right artificial knee joint (ICD-10) History of radiofrequency ablation procedure for cardiac arrhythmia ?Z98.890 - Other specified postprocedural states (ICD-10) History of vasectomy ?Z98.52 - Vasectomy status (ICD-10) History of colonoscopy ?Z98.890 - Other specified postprocedural states (ICD-10) Family History Mother Rheumatoid arthritis Sister FH: total knee replacement Sister History of bilateral knee replacement Social History (Updated 02/21/23 @ 14:18 by Amos Mcgraw MD) Narrative: He lives with his [facility]. They live in a two-story house. After his last surgery he lived on 1 level for 2 weeks. This worked well for him. He does not smoke. He drinks 2 alcoholic beverages every couple weeks What is your current living situation?: I presently have a place to live Problems where you live: no known problems In the past 12 months, utilities in danger of being shut off: no In past 12 months, lack of transportation kept you from medical appts, meetings, work, or getting things needed for daily living: no In the past 12 mos, have been you worried that your food would run out before you had money to buy more?: never true In the past 12 mos, the food you bought just didn't last and you didn't have money to buy more?: never true Highest level of school completed/degree received: Bachelor's degree Smoking Status: Former smoker What tobacco products do you use: cigarettes Years smoked: 10 Smoking quit date/years: >15 years ago Do you use any of these nicotine containing products: None Second hand tobacco smoke exposure: No How often do you have a drink containing alcohol: 2-4 times a month Alcohol type: hard liquor How many standard drinks containing alcohol do you have on a typical day: 1 or 2 How often do you have six or more drinks on one occasion: Never AUDIT-C Alcohol total score: 2 Non-prescribed substance use: denies use Caffeine: No How often does anyone, including family, friends and others, physically hurt you: never How often does anyone, including family, friends and others, insult or talk down to you: never How often does anyone, including family, friends and others, threaten you with harm: never How often does anyone, including family, friends and others, scream or curse at you: never service: No Meds Home Medications and Allergies Home Medications Medication Instructions Recorded Confirmed Type cholecalciferol (vitamin D3) 50 50 mcg PO DAILY 06/27/22 02/21/23 History mcg (2,000 unit) capsule coenzyme Q10 100 mg capsule 100 mg PO DAILY 06/27/22 02/21/23 History potassium gluconate 550 mg (90 mg) 1,100 mg PO DAILY 06/27/22 02/21/23 History tablet iron,carbonyl 65 mg-vitamin C 125 1 tab PO QDAY 10/25/22 02/21/23 History mg tablet,delayed release (Vitron-C) vitamin B complex (B 1 tab PO DAILY 10/25/22 02/21/23 History Complex-Vitamin B12 tablet) candesartan 4 mg tablet 4 mg PO DAILY 11/01/22 02/21/23 History metoprolol succinate 50 mg 50 mg PO DAILY 11/01/22 02/21/23 History tablet,extended release 24 hr sildenafil 100 mg tablet 100 mg PO Q24H PRN sexual activity 11/01/22 02/21/23 History aspirin 81 mg tablet,delayed 81 mg PO DAILY 02/21/23 02/21/23 History release (Adult Aspirin Regimen) Allergies Allergy/AdvReac Type Severity Reaction Status Date / Time hydrochlorothiazide Allergy Verified 02/21/23 06:46 hydroxychloroquine Allergy Verified 02/21/23 06:46 lisinopril Allergy Verified 02/21/23 06:46 ragweed pollen Allergy Verified 02/21/23 06:46 triamterene Allergy Verified 02/21/23 06:46 Exam Narrative: Exam Narrative: He is alert and appears in no distress he is oriented to his circumstances. Respirations are clear to auscultation. Cardiovascular: S1, S2, irregularly irregular. No murmur gallop or rub. Abdomen: Bowel sounds active. Abdomen is soft without tenderness or mass. Sensation and motion is just beginning to return to both feet and ankles. Intact pedal pulses. Const: Vital Signs, click to edit/add: Vital Signs - 24 hr 02/21/23 07:30 02/21/23 11:08 02/21/23 11:10 Temperature 97.8 F 97.1 F L Pulse Rate 150 H 93 97 Pulse Rate [Left P ulse Oximeter] Respiratory Rate 16 25 H 18 Blood Pressure 126/99 H 149/115 H 95/64 Blood Pressure [Ri ght Arm] Pulse Oximetry 96 95 95 Oxygen Delivery Me thod Room Air Room Air 02/21/23 11:15 02/21/23 11:20 02/21/23 11:25 Temperature Pulse Rate 83 70 75 Pulse Rate [Left P ulse Oximeter] Respiratory Rate 20 16 12 Blood Pressure 68/47 L 118/88 120/78 Blood Pressure [Ri ght Arm] Pulse Oximetry 95 93 94 Oxygen Delivery Me thod 02/21/23 11:30 02/21/23 11:35 02/21/23 11:40 Temperature 97.9 F Pulse Rate 81 81 87 Pulse Rate [Left P ulse Oximeter] Respiratory Rate 12 12 12 Blood Pressure 97/83 112/74 110/72 Blood Pressure [Ri ght Arm] Pulse Oximetry 94 96 95 Oxygen Delivery Me thod Room Air 02/21/23 11:45 02/21/23 12:00 02/21/23 12:15 Temperature 96.7 F L 96.3 F L Pulse Rate 80 Pulse Rate [Left P ulse Oximeter] 87 93 Respiratory Rate 14 16 16 Blood Pressure 116/71 Blood Pressure [Ri ght Arm] 112/74 110/90 H Pulse Oximetry 93 92 93 Oxygen Delivery Me thod Room Air Room Air 02/21/23 12:30 02/21/23 12:45 02/21/23 12:47 Temperature 95.8 F L 95.8 F L Pulse Rate Pulse Rate [Left P ulse Oximeter] 81 85 Respiratory Rate 16 16 Blood Pressure Blood Pressure [Ri ght Arm] 120/78 114/82 Pulse Oximetry 93 93 93 Oxygen Delivery Me thod Room Air Room Air 02/21/23 13:00 Temperature 96.2 F L Pulse Rate Pulse Rate [Left P ulse Oximeter] 92 Respiratory Rate 12 Blood Pressure Blood Pressure [Ri ght Arm] 123/81 Pulse Oximetry 92 Oxygen Delivery Me thod Room Air Documenting provider has reviewed patient's vital signs: yes Assessment and Plan Assessment and plan (1) Atrial fibrillation with rapid ventricular response: Problem comment: Uncertain duration of recurrent atrial fibrillation. Now on a diltiazem drip. Will give oral metoprolol and oral diltiazem to wean off the drip. Will attempt to manage AFib with rate control and resume anticoagulation. Will need outpatient follow-up for rhythm control. Status: Inactive (2) History of arthroplasty of left knee: Problem comment: Left knee arthroplasty 02/21/[address] Ramirez Status: Acute Plan Patient is admitted for postoperative care for knee arthroplasty. In addition will manage AFib with RVR. Currently on a diltiazem drip. Will transition to oral rate control. Resume anticoagulation. If necessary outpatient follow-up for rhythm control. Total time spent today is 70 minutes, 45 minutes in coordination of care discussing with patient and , other providers and cardiology and anesthesia ongoing evaluation management of AFib with RVR
[2023-02-21] MEDS: METOPROLOL SUCCINATE (XL) 50 MG TAB PO ×2 (13:55→20:11)
[2023-02-21] MEDS: HYDROmorphone 0.5 mg/0.5 ml inj IVP (13:56)
[2023-02-21] MEDS: OXYCODONE 5 MG TABLET PO ×5 (14:46→22:44)
--- NOTE | 2023-02-21 15:15 | PC.NURSE ---
END OF SHIFT NOTE: PATIENT ARRIVED TO MED/SURG FLOOR AT 1200 TODAY. PER HIS REPORT, PAIN TO LEFT KNEE HAS BEEN UP TO 6/10. PRN OXYCODONE 5 MG ADMINISTERED AFTER IV DILAUDID WAS NOTED TO BE MINIMALLY EFFECTIVE. DRESSING TO LEFT KNEE SURGICAL INCISION NOTED TO BE CLEAN, DRY AND INTACT. PATIENT IS ALERT & ORIENTED X 4 WITH PRESENT AT BESIDE SHORTLY AFTER ARRIVAL TO UNIT. HE HAS NOT YET VOIDED THOUGH STATES HE FEELS IF HE WILL BE ABLE TO URINATE SOON- URINAL PROVIDED. LUNG SOUNDS NOTED TO BE CLEAR TO ALL LOBES BILATERALLY AND BOWEL SOUNDS ARE ACTIVE IN ALL FOUR QUADRANTS WITH LAST BM OF 02/21/23. PATIENT HAS BEEN ON DILTIAZEM DRIP TO HELP CONTROL HEART RATE- HAS HX OF A FIB. CWMS TO BILATERAL LOWER EXTREMITIES NOTED TO BE INTACT WITH BILATERAL YADIRA STOCKINGS AND PLEXIPULSE PUMPS WORN. PATIENT HAS BEEN HAVING WATER, ICE CHIPS AND CHOCOLATE PUDDING AND HAS TOLERATED SO FAR. PATIENT DENIES NAUSEA WHEN ASKED WITH NO VOMITING NOTED. PATIENT TAKES PILLS WHOLE WITHOUT DIFFICULTY.
--- NOTE | 2023-02-21 18:12 | PC.NURSE ---
End of shift. pt has been very pleasant. he has been CCU (unit) and all unit and assessment also checked and done by global technical writer. pain left knee 2-10/28. he os getting po pain Meds. he is using the urinal 100 3 times. he is eating and drinking. he is alert x4. HR is irregular. tele shows A-Fib. Diltiazem drip was 5. it was increase to 10 and later 15 for increased HR> HR 80's - 120's/ Po meds also given for HR control. dressing is C/D/I cryo-ciff to the knee. teds and plexi are on. he can reposition him self in bed. he has LR @ 75. he is a fall risk and alarms are on. he is watching the tv. was here and is loving and caring. he had other knee done 3 months ago
[2023-02-21] MEDS: dilTIAZem 30 MG TABLET 60 MG PO ×2 (18:47→22:01)
[2023-02-21] MEDS: SENNOSIDES 1 TAB TABLET 2 TAB PO (20:10)
[2023-02-21] MEDS: APIXABAN 5 MG TABLET PO (20:11)
[2023-02-21] MEDS: dilTIAZem HCL 125 MG in 0.9 % SODIUM CHLORIDE 100 ml 100 ML 15 MG IVPB (20:22)
[2023-02-22] VITALS (11 sets, daily range): BP systolic 111–135; BP diastolic 75–105; PULSE 69–115; RESP 16–20; TEMP 35.8–36.5; O2SAT 92–95
[2023-02-22] MEDS: ACETAMINOPHEN 500 MG TABLET 1000 MG PO ×4 (02:01→20:44)
[2023-02-22] MEDS: OXYCODONE 5 MG TABLET PO ×6 (02:01→20:45)
[2023-02-22] MEDS: dilTIAZem 30 MG TABLET 60 MG PO ×2 (02:01→22:33)
--- NOTE | 2023-02-22 06:03 | PC.NURSE ---
SHIFT NOTE :Pt alert and oriented, pleasant. CPAP on at HS, oxygen saturations in the low 90's. Afebrile. Tele reads a-fib, on the diltiazem drip until 0500, HR currently in the 70's, diltiazem drip paused. Pt given PRN Oxycodone as needed for pain, reports adequate relief. Denies N/V, CP, and SOB. Dressing C/D/I, cryocuff on continuously. Pt up 1 assist with a walker, tolerated well.
[2023-02-22 06:33] LABS: Basophils Percent Auto 0.1 % (0.0-3.0); Hematocrit 36.1 % (37.0-53.0); Hemoglobin* 11.2 gm/dL (13.5-17.5); Immature Granulocytes Pct Auto 0.6 %; Lymphocytes Percent Auto 5.8 % (20-44); Mean Corpuscular HGB Conc 31 gm/dL (32-36); Mean Corpuscular Hemoglobin 27 pg (26-34); Mean Corpuscular Volume 86 fL (80-100); Monocytes Percent Auto 8.2 % (0.0-11.0); Neutrophils Percent Auto 85.3 % (42.0-72.0); Platelet Count* 324 K/uL (140-440); RDW Coefficient of Variation % 13.2 % (11.5-15.5); Red Blood Count 4.19 m/uL (4.30-5.90); White Blood Count* 13.88 K/uL (4.50-11.00)
[2023-02-22 06:51] LABS: Slide Review Reflex No
[2023-02-22 07:43] LABS: Potassium* 4.4 mmol/L (3.6-5.1); Sodium* 137 mmol/L (135-149)
[2023-02-22] MEDS: CEFAZOLIN 2 GM in 0.9 % SODIUM CHLORIDE Mini-bag 100 ML IVPB (07:45)
[2023-02-22 07:46] LABS: Blood Urea Nitrogen* 21 mg/dL (7-30); Creatinine* 0.7 mg/dL (0.5-1.5); Est. Creatinine Clearance* 84.07; Estimated Glomerular Filt Rate 104 ml/min
[2023-02-22] MEDS: APIXABAN 5 MG TABLET PO ×2 (08:16→20:45)
[2023-02-22] MEDS: dilTIAZem 240 MG CAP (CD) PO (08:17)
[2023-02-22] MEDS: METOPROLOL SUCCINATE (XL) 50 MG TAB PO ×2 (08:17→20:45)
[2023-02-22] MEDS: SENNOSIDES 1 TAB TABLET 2 TAB PO ×2 (08:17→20:44)
--- NOTE | 2023-02-22 09:47 | PC.SOCIAL ---
Discharge Planning: Met with patient in room and discussed plan at discharge. Patient states that he will be going back home and his will transport him. Social work to follow up as needed.
--- NOTE | 2023-02-22 12:04 | PM.ORPN ---
Subjective Subjective Date Seen: 02/22/23 Principal diagnosis: Status postop day 1 left total knee arthroplasty Interval history: Patient reports doing well overall. No acute events over night. He is more concerned with his recent AFib, RVR, which is currently being medically managed. Pain managed with scheduled and PRN medications, ice. DVT prophylaxis: Apixaban, bilateral knee high Ken stockings, SCDs, walking. Denies fevers, chills, aches, N/V, CP, chest palpitations, SOB/SHORE, or lightheadedness. Ortho Exam Narrative Exam Narrative: -Patient appears comfortable; no apparent acute distress -Alert and oriented times 3 -Operative knee mildly swollen; soft tissues supple; no ecchymosis; no erythematous streaking Warmth appropriate -Surgical dressing clean, dry, intact; no drainage -Bilateral calfs soft; no significant swelling, edema, tenderness, erythema, discoloration, warmth, or palpable cords -2+ DP/PT pulses, intact dermatomes and myotomes distally (5/5 strength) Const Vital Signs, click to edit/add: Vital Signs - 24 hr 02/21/23 12:15 02/21/23 12:30 02/21/23 12:45 Temperature 96.3 F L 95.8 F L 95.8 F L Pulse Rate Pulse Rate [Left Pulse Oximeter] 93 81 85 Respiratory Rate 16 16 16 Blood Pressure [Right Arm] 110/90 H 120/78 114/82 Pulse Oximetry 93 93 93 Oxygen Delivery Method Room Air Room Air Room Air 02/21/23 12:47 02/21/23 13:00 02/21/23 13:00 Temperature 96.2 F L Pulse Rate 79 Pulse Rate [Left Pulse Oximeter] 92 Respiratory Rate 12 Blood Pressure [Right Arm] 123/81 Pulse Oximetry 93 92 Oxygen Delivery Method Room Air 02/21/23 13:30 02/21/23 14:00 02/21/23 15:07 Temperature 96.1 F L 95.9 F L 96.3 F L Pulse Rate Pulse Rate [Left Pulse Oximeter] 100 102 H 89 Respiratory Rate 12 16 16 Blood Pressure [Right Arm] 123/104 H 114/82 120/83 Pulse Oximetry 94 93 92 Oxygen Delivery Method Room Air Room Air Room Air 02/21/23 15:15 02/21/23 15:15 02/21/23 16:00 Temperature Pulse Rate 73 Pulse Rate [Left Pulse Oximeter] 114 H Respiratory Rate 16 Blood Pressure [Right Arm] 126/90 H Pulse Oximetry 92 94 Oxygen Delivery Method Room Air 02/21/23 16:44 02/21/23 17:02 02/21/23 18:10 Temperature Pulse Rate 114 H Pulse Rate [Left Pulse Oximeter] 114 H 107 H Respiratory Rate 16 16 Blood Pressure [Right Arm] 126/84 120/87 Pulse Oximetry 95 90 Oxygen Delivery Method Room Air Room Air 02/21/23 19:00 02/21/23 19:12 02/21/23 20:00 Temperature 97.0 F L 97.8 F Pulse Rate 95 Pulse Rate [Left Pulse Oximeter] 95 79 Respiratory Rate 16 16 Blood Pressure [Right Arm] 118/87 117/85 Pulse Oximetry 93 92 Oxygen Delivery Method Room Air Room Air 02/21/23 22:00 02/21/23 23:00 02/21/23 23:00 Temperature 97.9 F Pulse Rate 78 Pulse Rate [Left Pulse Oximeter] 72 Respiratory Rate 18 Blood Pressure [Right Arm] 125/84 Pulse Oximetry 94 91 Oxygen Delivery Method Room Air 02/21/23 23:00 02/22/23 00:00 02/22/23 02:00 Temperature 97.2 F L 97.4 F L Pulse Rate Pulse Rate [Left Pulse Oximeter] 74 78 80 Respiratory Rate 18 18 Blood Pressure [Right Arm] 127/88 131/86 Pulse Oximetry 92 93 Oxygen Delivery Method Room Air Room Air 02/22/23 03:00 02/22/23 04:00 02/22/23 06:00 Temperature 97 F L 97.5 F L Pulse Rate 80 Pulse Rate [Left Pulse Oximeter] 76 72 Respiratory Rate 18 16 Blood Pressure [Right Arm] 115/75 114/75 Pulse Oximetry 95 92 Oxygen Delivery Method Room Air CPAP 02/22/23 07:00 02/22/23 07:00 02/22/23 07:00 Temperature 96.9 F L Pulse Rate Pulse Rate [Left Pulse Oximeter] 83 83 Respiratory Rate 16 Blood Pressure [Right Arm] 119/81 Pulse Oximetry 94 94 Oxygen Delivery Method Room Air 02/22/23 07:00 Temperature Pulse Rate 69 Pulse Rate [Left Pulse Oximeter] Respiratory Rate Blood Pressure [Right Arm] Pulse Oximetry Oxygen Delivery Method Assessment and Plan Assessment and plan (1) Atrial fibrillation with rapid ventricular response: Problem details: Uncertain duration of recurrent atrial fibrillation. Now on a diltiazem drip. Will give oral metoprolol and oral diltiazem to wean off the drip. Will attempt to manage AFib with rate control and resume anticoagulation. Will need outpatient follow-up for rhythm control. Status: Inactive (2) History of arthroplasty of left knee: Problem details: POD 1 Left knee arthroplasty 02/21/[address] Ramirez Status: Acute Plan - Complete 23 hour perioperative antibiotics. - PT/OT consult for education and assistance. - Social work consult for discharge planning - Prescribed analgesics as needed - DVT prophylaxis: Apixaban, bilateral knee high Ken Hose stockings and SCDs - Anticipation is for discharge to home with spouse once patient is medically stable especially regarding his current AFib, pain is controlled, and they are safe with mobilization. From an orthopedic standpoint, patient is safe to go home once he is medically managed.
--- NOTE | 2023-02-22 15:38 | PM.IMPN1 ---
Progress Note: A&P Assessment and plan (1) Atrial fibrillation with rapid ventricular response: Problem details: Uncertain duration of recurrent atrial fibrillation. Now off IV diltiazem an on oral diltiazem plus oral metoprolol. Good rate control and tolerating this well. Continue to titrate oral medicines with possible discharge to home tomorrow. On apixaban. Status: Inactive (2) History of arthroplasty of left knee: Problem details: POD 1 Left knee arthroplasty 02/21/[address] Ramirez. Doing well. No operative complications. On apixaban for VTE prophylaxis. Status: Acute Plan Continue in-hospital for transition to oral rate control for AFib with RVR and ongoing management of postoperative needs. Possible discharge to home tomorrow. Time Spent With Patient Total time spent: Total time spent today is 40 minutes, 30 minutes in coordination of care discussing with patient, and other providers ongoing evaluation management of AFib with RVR and postoperative knee surgery care Subjective Date Seen: 02/22/23 Interval history: 62-year-old male status post knee arthroplasty day 1. Presented to the hospital in AFib in RVR. Required IV diltiazem through surgery and postoperatively. He switched over to oral metoprolol and oral diltiazem and weaned off of diltiazem IV overnight. Through this process he has been asymptomatic. His blood pressure and pulse have been fairly well controlled. Today is been up with physical therapy and reports tolerating that. His pain control is adequate. Exam Narrative: Exam Narrative: He is alert and appears in no distress. Respirations are clear to auscultation. Cardiovascular: S1, S2, irregular irregular. Abdomen is soft without tenderness. Extremities with minimal edema bilaterally Const: Vital Signs, click to edit/add: Vital Signs - 24 hr 02/21/23 16:00 02/21/23 16:44 02/21/23 17:02 Temperature Pulse Rate 114 H Pulse Rate [Left P ulse Oximeter] 114 H 114 H Respiratory Rate 16 16 Blood Pressure [Ri ght Arm] 126/90 H 126/84 Pulse Oximetry 94 95 Oxygen Delivery Me thod Room Air Room Air 02/21/23 18:10 02/21/23 19:00 02/21/23 19:12 Temperature 97.0 F L Pulse Rate 95 Pulse Rate [Left P ulse Oximeter] 107 H 95 Respiratory Rate 16 16 Blood Pressure [Ri ght Arm] 120/87 118/87 Pulse Oximetry 90 93 Oxygen Delivery Me thod Room Air Room Air 02/21/23 20:00 02/21/23 22:00 02/21/23 23:00 Temperature 97.8 F 97.9 F Pulse Rate 78 Pulse Rate [Left P ulse Oximeter] 79 72 Respiratory Rate 16 18 Blood Pressure [Ri ght Arm] 117/85 125/84 Pulse Oximetry 92 94 Oxygen Delivery Me thod Room Air Room Air 02/21/23 23:00 02/21/23 23:00 02/22/23 00:00 Temperature 97.2 F L Pulse Rate Pulse Rate [Left P ulse Oximeter] 74 78 Respiratory Rate 18 Blood Pressure [Ri ght Arm] 127/88 Pulse Oximetry 91 92 Oxygen Delivery Me thod Room Air 02/22/23 02:00 02/22/23 03:00 02/22/23 04:00 Temperature 97.4 F L 97 F L Pulse Rate 80 Pulse Rate [Left P ulse Oximeter] 80 76 Respiratory Rate 18 18 Blood Pressure [Ri ght Arm] 131/86 115/75 Pulse Oximetry 93 95 Oxygen Delivery Me thod Room Air Room Air 02/22/23 06:00 02/22/23 07:00 02/22/23 07:00 Temperature 97.5 F L 96.9 F L Pulse Rate Pulse Rate [Left P ulse Oximeter] 72 83 Respiratory Rate 16 16 Blood Pressure [Ri ght Arm] 114/75 119/81 Pulse Oximetry 92 94 94 Oxygen Delivery Me thod CPAP Room Air 02/22/23 07:00 02/22/23 07:00 02/22/23 11:00 Temperature 97.4 F L Pulse Rate 69 Pulse Rate [Left P ulse Oximeter] 83 69 Respiratory Rate 16 Blood Pressure [Ri ght Arm] 111/76 Pulse Oximetry 95 Oxygen Delivery Me thod Room Air Documenting provider has reviewed patient's vital signs: yes Labs Labs: Laboratory Results - last 24 hr 02/22/23 05:45 WBC 13.88 H RBC 4.19 L Hgb 11.2 L Hct 36.1 L MCV 86 MCH 27 MCHC 31 L RDW Coeff of [place] 13.2 Plt Count 324 Neut % (Auto) 85.3 H Lymph % (Auto) 5.8 L Williams % (Auto) 8.2 Eos % (Auto) 0.0 Baso % (Auto) 0.1 Neut # (Auto) 11.80 H Lymph # (Auto) 0.80 L Williams # (Auto) 1.10 H Eos # (Auto) 0.00 Baso # (Auto) 0.00 Abs Immat Gran (auto) 0.10 Imm/Tot Granulo (auto) 0.6 Sodium 137 Potassium 4.4 BUN 21 Creatinine 0.7 Estimated Creat Clear 84.07 Estimated GFR 104
--- NOTE | 2023-02-22 18:43 | PC.NURSE ---
Patient alert and oriented, cooperative and pleasant. Active participant in cares and therapy. Up with standby assistance, gait belt, and walker. Frequently moves from bed to chair and ambulates to bathroom. Dressing CDI, cryocuff on. Patient reports of pain managed per MAR interventions. Baseline history of afib and elevated heart rate, MD aware. Throughout shift, normal ventricular rate noted. Family at bedside during shift.
--- NOTE | 2023-02-22 23:05 | PC.NURSE ---
End of Shift ([id number]): Patient pleasant and cooperative. Afebrile. Rating pain in left knee 5/10 and PRN Oxycodone given x1. Up to bathroom with SBA, walker and gait belt. Tolerating regular diet with no nausea. Tele showing A-fib with rate 80-100 at the start of the shift. Heart rate increased to 100-115 at rest and PRN Dilt given x1.
[2023-02-23 01:00] VITALS: BP 132/91; PULSE 80; PULSE 97; RESP 16; TEMP 36.7; O2SAT 94
[2023-02-23] MEDS: OXYCODONE 5 MG TABLET PO ×3 (01:18→10:15)
[2023-02-23] MEDS: ACETAMINOPHEN 500 MG TABLET 1000 MG PO ×2 (02:54→08:37)
[2023-02-23 02:58] VITALS: BP 142/77; PULSE 102; RESP 18; TEMP 36.4; O2SAT 94
[2023-02-23 07:18] LABS: Basophils Percent Auto 0.1 % (0.0-3.0); Eosinophils Percent Auto 0.3 % (0.0-7.0); Hematocrit 35.5 % (37.0-53.0); Hemoglobin* 10.8 gm/dL (13.5-17.5); Immature Granulocytes Pct Auto 0.8 %; Lymphocytes Percent Auto 11.2 % (20-44); Mean Corpuscular HGB Conc 30 gm/dL (32-36); Mean Corpuscular Hemoglobin 27 pg (26-34); Mean Corpuscular Volume 89 fL (80-100); Monocytes Percent Auto 9.5 % (0.0-11.0); Neutrophils Percent Auto 78.1 % (42.0-72.0); Platelet Count* 294 K/uL (140-440); RDW Coefficient of Variation % 13.7 % (11.5-15.5); Red Blood Count 3.98 m/uL (4.30-5.90)
[2023-02-23 07:23] VITALS: PULSE 83
[2023-02-23 07:32] VITALS: O2SAT 97
[2023-02-23 07:44] LABS: Slide Review Reflex No
--- NOTE | 2023-02-23 07:48 | PC.NURSE ---
END OF SHIFT NOTE: PT PLEASANT AND COOPERATIVE. A&Ox3. DENIES CP, SOB, N/V. AMBULATES WITH WALKER, GB, SBA. VSS ON RA; AFEBRILE. BRYCE - PT WORE CPAP OVERNIGHT. PT RATES LEFT KNEE PAIN 6-7/10 WITH RELIEF FROM ACTIVE ICE AND PRN PAIN MEDS (SEE EMAR). TELE READS AFIB. BED ALARM ON AND CALL LIGHT WITHIN PT?S REACH.?
[2023-02-23 08:30] VITALS: BP 143/90; PULSE 95; RESP 18; TEMP 36.6; O2SAT 97
[2023-02-23] MEDS: TORSEMIDE 5 MG TABLET 10 MG PO (08:37)
[2023-02-23] MEDS: APIXABAN 5 MG TABLET PO (08:37)
[2023-02-23] MEDS: SENNOSIDES 1 TAB TABLET 2 TAB PO (08:37)
[2023-02-23] MEDS: METOPROLOL SUCCINATE (XL) 50 MG TAB PO (08:37)
[2023-02-23] MEDS: dilTIAZem 240 MG CAP (CD) PO (08:37)
[2023-02-23] MEDS: dilTIAZem 30 MG TABLET 60 MG PO (11:56)
--- NOTE | 2023-02-23 14:47 | PM.DS1 ---
DS: Providers Provider Date Seen: 02/23/23 Date of admission: 02/21/23 13:59 Primary care physician: Mary Ulrich APRN, SPECIAL DIET COOK Admitting Clinician: Amos Mcgraw MD Attending Physician on discharge: Burton Ramirez MD Date of Discharge: 02/23/23 DS: Diagnosis Discharge Diagnosis (1) History of arthroplasty of left knee: Status: Acute Problem details: POD 1 Left knee arthroplasty 02/21/[address] Ramirez. Doing well. No operative complications. On apixaban for VTE prophylaxis. (2) Atrial fibrillation with rapid ventricular response: Status: Acute Problem details: Patient has history of atrial fibrillation with previous cardioversions and ablation. He had been in normal sinus rhythm over the past several months until he arrived for surgery when he was found to be in atrial fibrillation with rapid ventricular response, pulse around 150. The time of onset of this is uncertain. Because he had been off apixaban for 3 and half days preoperatively it was felt unsafe to do cardioversion. He underwent knee replacement well on a diltiazem drip and was admitted to the floor on a diltiazem drip for rate control. He tolerated this well. He was transitioned from IV diltiazem to oral diltiazem along with an increased dose of metoprolol 50 mg b.i.d.. He remains on apixaban postoperatively for stroke prophylaxis and VTE prophylaxis DS: Summary Hospital Course Hospital Course: 62-year-old male admitted to the hospital for knee arthroplasty. Preop evaluation by Anesthesia found that he was in a atrial fibrillation with a heart rate in the 150s. He had been off apixaban for 3 and half days and the onset of this tachycardia was unknown. He reported being asymptomatic. He was placed on a diltiazem drip for surgery and the postoperative. He tolerated this very well without hypotension. He was transitioned to oral diltiazem and oral metoprolol for rate control. His current regimen of rate control is metoprolol succinate 50 mg b.i.d. and diltiazem CD 120 mg b.i.d.. He still is having some tachycardia and may need a higher dose of diltiazem. After some discussion the patient elects to go home and monitor his heart rate and blood pressure at home twice daily before he takes his metoprolol and diltiazem. The goal would be a resting heart rate less than 100 and a resting systolic blood pressure greater than 100. He is also to monitor for symptoms of dyspnea, chest pain, lightheadedness. He is to contact the hospitalist on duty this weekend to report his blood pressure and pulse. If he needs additional rate control medication would increase him from diltiazem 120 b.i.d. to diltiazem 240 mg in the morning and 120 mg at bedtime. He also has an appointment with his primary care provider, Sathish Ulrich, in 4 days, Sunday. If he can tolerate rate control, the plan will be for him to get outpatient cardioversion, if necessary, in about 1 month through his financial advisor at [facility]. If a rate control strategy for his AFib is unsuccessful then more urgent FABIENNE cardioversion may be needed. Status at Discharge Functional status at discharge: uses cane/walker Overall status at discharge: patient is progressing back to baseline Time Spent with Patient Time attestation: Total time spent providing and/or coordinating discharge services: 50 MINUTES Exam Narrative: Exam Narrative: HE IS ALERT PURE IS A NO DISTRESS. RESPIRATIONS ARE CLEAR TO AUSCULTATION. CARDIOVASCULAR: S1, S2, IRREGULARLY IRREGULAR. ABDOMEN IS SOFT WITHOUT TENDERNESS. NO SIGNIFICANT EDEMA. HE IS OBSERVED TO WALK QUITE WELL IN THE HALLWAY. Const: Vital Signs, click to edit/add: Vital Signs - 24 hr 02/22/23 15:00 02/22/23 15:00 02/22/23 15:00 Temperature 96.4 F L Pulse Rate 76 Pulse Rate [Left P ulse Oximeter] 83 Respiratory Rate 20 Blood Pressure [Le ft Arm] Blood Pressure [Ri ght Arm] 134/80 Pulse Oximetry 94 94 Oxygen Delivery Me thod Room Air 02/22/23 19:00 02/22/23 20:22 02/22/23 22:34 Temperature 97.7 F Pulse Rate 107 H Pulse Rate [Left P ulse Oximeter] 90 115 H Respiratory Rate 16 Blood Pressure [Le ft Arm] 133/93 H 135/105 H Blood Pressure [Ri ght Arm] Pulse Oximetry 95 Oxygen Delivery Me thod Room Air 02/23/23 01:00 02/23/23 01:00 02/23/23 01:00 Temperature Pulse Rate 97 Pulse Rate [Left P ulse Oximeter] 80 Respiratory Rate 16 Blood Pressure [Le ft Arm] Blood Pressure [Ri ght Arm] Pulse Oximetry 94 Oxygen Delivery Me thod 02/23/23 01:00 02/23/23 02:58 02/23/23 07:23 Temperature 98.0 F 97.6 F Pulse Rate 83 Pulse Rate [Left P ulse Oximeter] 80 102 H Respiratory Rate 16 18 Blood Pressure [Le ft Arm] 132/91 H 142/77 H Blood Pressure [Ri ght Arm] Pulse Oximetry 94 94 Oxygen Delivery Me thod CPAP Room Air 02/23/23 07:32 02/23/23 08:30 02/23/23 08:30 Temperature 97.8 F Pulse Rate Pulse Rate [Left P ulse Oximeter] 95 Respiratory Rate 18 Blood Pressure [Le ft Arm] 143/90 H Blood Pressure [Ri ght Arm] Pulse Oximetry 97 97 97 Oxygen Delivery Me thod Room Air Documenting provider has reviewed patient's vital signs: yes DS: Data Data Completed and Pending Labs on day of discharge: Labs from last 24 hours 02/23/23 06:37 WBC 12.10 H RBC 3.98 L Hgb 10.8 L Hct 35.5 L MCV 89 MCH 27 MCHC 30 L RDW Coeff of [place] 13.7 Plt Count 294 Neut % (Auto) 78.1 H Lymph % (Auto) 11.2 L Kent % (Auto) 9.5 Eos % (Auto) 0.3 Baso % (Auto) 0.1 Neut # (Auto) 9.50 H Lymph # (Auto) 1.40 Kent # (Auto) 1.10 H Eos # (Auto) 0.00 Baso # (Auto) 0.00 Abs Immat Gran (auto) 0.10 Imm/Tot Granulo (auto) 0.8 Discharge Plan Discharge Disposition: Home, Self-Care Date of Admission: 02/21/23 13:59 Attending Provider on Discharge: Amos Mcgraw Consulting Providers: Edilia Giang; Physician,[place]; Dio Reid; Gabe Maguire; Justine Schaefer; Rosana Moy; Rosey Rai; Isiah Muniz; Mally Da Silva; Tyree Bowser; Amos Mcgraw; Heri Potter; Curtis Tristan; Juliette Meier; Damion Killian; Neel Chong; Marco Antonio Garrido; Christiano Beverly; Ruiz Kraus; Esvin Juarez Primary Care Provider: Mary Ulrich Condition: Improved Anticipated Discharge Date/Time: 02/23/23 10:00 Discharge Medications: New sennosides-docusate sodium [Senna-S] 8.6-50 mg tablet 1 - 4 tab-cap PO BID PRN (Reason: constipation) Qty: 60 0RF Rx Instructions: Hold medication if experiencing loose stools. oxycodone 5 mg tablet 2.5 - 5 mg PO Q4-6H MDD 6 PRN (Reason: pain) Qty: 42 0RF Rx Instructions: Take as needed for postop pain: 2.5mg mild pain, 5mg moderate-severe pain; wean as tolerated. diltiazem HCl 120 mg capsule,extended release 24 hr 120 mg PO BID Qty: 60 2RF Continued vitamin B complex [B Complex-Vitamin B12] Tablet 1 tab PO DAILY Vitron-C 65 mg iron- 125 mg tablet,delayed release (DR/EC) 1 tab PO QDAY potassium gluconate 550 mg (90 mg) tablet 1,100 mg PO DAILY cholecalciferol (vitamin D3) 50 mcg (2,000 unit) capsule 50 mcg PO DAILY coenzyme Q10 100 mg capsule 100 mg PO DAILY Eliquis 5 mg tablet 5 mg PO BID 90 Days Qty: 180 3RF torsemide 20 mg tablet 20 mg PO DAILY 90 Days Qty: 90 3RF sildenafil 100 mg tablet 100 mg PO Q24H PRN (Reason: sexual activity) acetaminophen 500 mg capsule 500 - 1,000 mg PO Q6H MDD 4000mg PRNQty: 100 0RF Changed metoprolol succinate 50 mg tablet extended release 24 hr 50 mg PO BID Qty: 60 0RF Discontinued candesartan 4 mg tablet 4 mg PO DAILY aspirin [Adult Aspirin Regimen] 81 mg tablet,delayed release (DR/EC) 81 mg PO DAILY Discharge Orders: Discharge Order (Routine); Ordered 02/23/23 Ordered By: Amos Mcgraw Patient Education: Diltiazem (By mouth), Oxycodone, Rapid Release (By mouth), Senna (By mouth), Surgical Site Infections (DC) Additional Instructions: Check your blood pressure and pulse twice a day before taking your metoprolol and diltiazem. The goal should be to have your resting pulse less than 100 and your systolic blood pressure, the top number, higher than 100. Call Dr Moy at [facility] [phone] Sunday morning to report your blood pressure and pulse. She will advise you on medication changes. Activity Level: Activity as Tolerated, Weight Bearing as Tolerated, Use Cane and Use Walker Activity Detail: Wound: ?Do not remove original dressing; we will remove this at first postop visit in 1 week. Only remove dressing if integrity is in question. ?No immersing wound in water; showering okay; light scrub with your hand and body soap, rinse, dab dry ?Sutures are under the skin, will dissolve; allow surgical glue to come off naturally; do not scrub the wound or apply ointments/lotions ?Call our office with any redness that streaks, excessive drainage from the wound, or wound gapping. Ice/Elevate: ?Ice as needed for swelling and discomfort (cryocuff or ice pack); elevate frequently above the heart YADIRA socks: ?Wear for 1 month, remove for 1 hour 3 times per day ?These are frustrating to take on/off, but are important for blood clot prevention for 1 month after surgery Blood Clot Prevention (DVT): ?Medication: Eliquis 5mg BID and 81 mg aspirin Qday by mouth (both of these are home meds prescribed by financial advisor Driving: ?Do not drive while taking narcotic pain medication ?Anticipate 4-6 weeks no driving if operative leg is driving leg Dental: ?No elective dental work for 6 months post-op. If there is an urgent/emergent dental need, contact our office for an antibiotic prescription. Smoking/Alcohol: ?Do not smoke; do no drink alcohol especially when taking postoperative oral narcotic medication Seek Care from you Primary Care Provider if you experience the following issues in the postoperative phase and beyond: ?Bacterial infections such as: pneumonia, bacterial skin infection (cellulitis), UTI, high fever, chills unrelated to the operative body part - call your primary care physician urgently for treatment in hopes to protect your health and the metal implant. Referrals: ?PT, OT per patient preference - evaluate treat total knee arthroplasty protocol (gait training, ROM, ADLs) Follow up: ?Ortho surgeon follow-up in 6 weeks; repeat radiographs three views operative knee ?IVELISSE visit in 1 week *If there are any acute concerns regarding your surgery, please call our orthopedic clinic ([phone]) Discharge Diet: Regular Follow Up Appointments: Tyree Casillas PA-C [Physician [place] Guide] - 03/02/23 8:30 am ([facility] for follow-up.) Mary Ulrich APRN, SPECIAL DIET COOK [Primary Care Provider] - 02/27/23 9:45 am (follow up to recheck your atrial fibrillation, heart rate and blood pressure. [facility]) Forms: Work/School Release
== END 2023-02-23 14:47 | disposition home or self-care (01) | DRG 302 ==
LOC: OR 02-27 15:19 → MEDSURG 02-27 15:19
PROVIDERS: Admitting Provider Family Medicine; PCP Nurse Practitioner Family; Visit Provider Orthopaedic Surgery Sports Medicine
PROC: 0SRD0J9 Replacement of Left Knee Joint with Synthetic Substitute, Cemented, Open Approach (ICD-10-PCS; CPT 27447; principal; 2023-02-21 08:45)
DX: M17.12 Unilateral primary osteoarthritis, left knee (principal); I48.20 Chronic atrial fibrillation, unspecified; G89.18 Other acute postprocedural pain; G47.30 Sleep apnea, unspecified; M35.3 Polymyalgia rheumatica; Z79.01 Long term (current) use of anticoagulants; I25.10 Atherosclerotic heart disease of native coronary artery without angina pectoris; Z96.651 Presence of right artificial knee joint; K90.49 Malabsorption due to intolerance, not elsewhere classified; I11.0 Hypertensive heart disease with heart failure; I50.30 Unspecified diastolic (congestive) heart failure; I77.810 Thoracic aortic ectasia
CPT/HCPCS: 01402; 36415; 64447; 64454; 73560; 76942; 82565; 84132; 84295; 84520; 85025; 97110; 97116; 97161; 97165; 97530; 97535; A9270; C1776; J0690; J1100; J1170; J2250; J2405; J2704; J2795; J3010; J3490; J7120

== ENCOUNTER 2023-03-19 16:30 | Outpatient (RCR) | payer OTHER, SELFPAY | END 2023-04-17 14:02 | disposition home or self-care (01) | PROVIDERS: PCP Nurse Practitioner Family; Visit Provider Orthopaedic Surgery Sports Medicine | DX: Z96.652 Presence of left artificial knee joint (principal); Z51.89 Encounter for other specified aftercare | CPT/HCPCS: 97110; 97116; 97140; 97163 ==

== ENCOUNTER 2023-06-19 10:19 | Outpatient (CLI) | payer OTHER, SELFPAY ==
--- OUTSIDE RECORDS SUMMARY | 2023-06-19 10:23 | XMS_ITS | Clinical Summary ---
Author Name Unknown Organization [facility] Address [place], [place] [address] Care Team Providers Care Harness Maker Name Role Phone Mary Ulrich NP Primary Care Provider Amrita vailable Allergies Active Allergy Reactions Criticality Noted Date Comments Lisinopril Cough 01/01/2013 Hydroxychloroquine Mental Status Change 04/20/2016 Ragweed Pollen Other - Describe In Comment Field 02/12/2017 Seasonal allergies, sneezing. Triamterene-Hydrochlorothia zid Other - Describe In Comment Field 01/01/2013 Muscle aches, fatigue. Medications Medication Sig Dispensed Refills Start Date End Date Status CPAPIndications:BRYCE on CPAP CPAP, heated humidifier, mask, headgear, filters and tubing. For home use. Pressure: 11 cm water Length of Need: 99 1 unit 0 04/02/2018 Active coenzyme q10 100 mg cap Take 100 mg by mouth once daily. 0 Active sildenafil citrate (VIAGRA) 100 mg tabletIndications:Oth er male erectile dysfunction Take 1 tablet by mouth once daily if needed for Erectile Dysfunction. Take 30min to 4 hours before sexual activity. Max 100mg/24hr. 24 tablet 2 07/30/2018 Active aspirin (ECOTRIN) 81 mg enteric coated tabletIndications:Cor onary artery disease involving [place] heart, angina presence unspecified, unspecified vessel or lesion type Take 1 tablet by mouth once daily with a meal. 0 06/09/2019 Active candesartan (ATACAND) 4 mg tabletIndications:Acu te on chronic diastolic congestive heart failure (HC) Take 1 Tablet (4 mg) by mouth once daily. 90 Tablet 3 12/06/2021 Active torsemide (DEMADEX) 20 mg tabletIndications:Car diomyopathy, unspecified type (HC),S/P ablation of atrial fibrillation Take 1 Tablet (20 mg) by mouth once daily. 30 Tablet 10 12/08/2021 Active metoprolol succinate (TOPROL XL) 50 mg sustained-release tablet Take 50 mg by mouth once daily. 0 Active cholecalciferol, Vitamin D3, (Vitamin D-3) 2,000 unit tablet Take 2,000 units by mouth once daily. 0 Active acetaminophen (Tylenol Extra Strength) 500 mg tablet Take 1,000 mg by mouth 3 times daily if needed. Max acetaminophen dose: 4000mg in 24 hrs. 0 Active Potassium Gluconate 595 mg (99 mg) tablet Take 2 Tablets by mouth once daily. 0 Active apixaban (ELIQUIS) 5 mg tabletIndications:pre vent thromboembolism in chronic atrial fibrillation Take 1 Tablet (5 mg) by mouth two times daily. 90 Tablet 3 09/18/2022 Active Active Problems Problem Noted Date Diagnosed Date Pain management contract agreement 08/02/2017 BRYCE on CPAP 01/29/2017 CAD (coronary artery disease) 01/17/2011 Aortic root dilation 01/16/2011 Overview: Reassess annually. Erectile dysfunction 09/13/2010 HTN (hypertension) 09/13/2010 Obesity (BMI 30-39.9) 09/13/2010 Atrial fibrillation with RVR Resolved Problems Problem Noted Date Diagnosed Date Resolved Date Acute on chronic diastolic c ongestive heart failure 05/09/2018 08/09/2020 Inflammatory arthritis 08/22/201405/11 Aortic root dilatation 01/16/201101/16 Overview: Monitor 1-2 years. Other malaise and fatigue 11/14/2010 SOB (shortness of breath) 10/28/2010 Cough 09/13/2010 05/11/2018 Back pain 09/13/2010 08/09/2020 Immunizations Name Administration Dates Next Due AMB Influenza, IIV4 PF (=>6 mos Flulaval,Fluzone Fluarix)(Flu Clinic Only) 03/18/2014 Influenza, IIV3 (Age >=3 years) 04/16/2015,05/05,04/09/2012 Influenza, IIV4 04/02/2018, 7,04/06/2016, 4 Influenza, IIV4 (=>6mos) MDV 04/06/2016 Tdap 09/27/2010 Family History Medical History Relation Name Comments Heart Disease Child Other Father prostate enlarg ement Good Health Maternal Grandfather Good Health Maternal Grandmother Heart Disease Mother at age 62 Psoriasis Mother Rheum arthritis Mother Cancer-colon Paternal Grandfather Good Health Paternal Grandmother Obesity Sister 1 Obesity Sister 2 Relation Name Status Comments Child Father Maternal Grandfather Maternal Grandmother Mother Paternal Grandfather Paternal Grandmother Sister 1 Alive Sister 2 Alive Social History Tobacco Use Types Packs/Day Years Used Date Smoking Tobacco: Former Cigarettes 3 10 0 01/01/1978 - 01/02/1988 Smokeless Tobacco: Never Tobacco Cessation:Counseling Given: Yes Alcohol Use Standard Drinks/Week Comments Yes 2 (1 standard drink = 0.6 oz pur e alcohol) PHQ-2 Answer Date Recorded PHQ-2 Score 1 07/20/2018 Social Connections Answer Date Recorded Frequency of Communication with Friends and Fami ly Not on file 05/21/2021 Financial Resource Strain Answer Date R ecorded Difficulty of Paying Living Expenses Not on file 05/21/2021 Difficulty of Paying Living Expenses Not on file 05/21/2021 Sex and Gender Information Value Date Recorded Sex Assigned at Not on file Gender Identity Not on file Sexual Orientation Not on file Obstetrics History Last Filed Vital Signs Vital Sign Reading Time Taken Comments Blood Pressure 146/98 03/02/2023 2:00 PM CDT Pulse 97 03/02/2023 2:00 PM CDT Temperature 36.3 ??C (97.3 ??F) 03/02/2023 2:00 PM CD T Respiratory Rate 18 03/02/2023 2:00 PM CDT Oxygen Saturation 99% 03/02/2023 2:00 PM CDT Inhaled Oxygen Concentration - - Weight 116.9 kg (257 lb 11.2 oz) 2022 12:04 PM CDT Height 182.9 cm (6') 03/02/2023 12:04 PM CDT Body Mass Index 34.95 03/02/2023 12:04 PM CDT Plan of Treatment Health Maintenance Due Date Last Done Comments HIV for age 15-65 11/10/1975 Hepatitis C screening for age 18-79 1978 Zoster (shingles) series for age 50+ (1 of 2) 2010 Depression screening for age 12+ 04/02/2019 04/02/2018, 02/12/2017, 08/31/2015 Tetanus booster 09/27/2020 09/27/2010, 09/27/2010 Colonoscopy through age 75 12/16/2022 12/16/2012, COVID-19 vaccine series ( season) 2023 03/23/2022, 04/04/2021, 08/24/2020, Additional history exists Influenza for age 50-64 01/19/2023 04/02/20 18, 02/12/2017, 04/06/2016, Additional history exists BMI (ht and wt on same day) for age 18+ 09/19/2023 09/18/2022, 10/31/2021, 10/24/2018, Additional history exists Lipids for age 45-75 10/22/2025 10/22/2020, 04/02/2018, 02/12/2017, Additional history exists Tdap Completed 09/27/2010 Pneumococcal series for age 6-64 Aged Out No longer eligible based on patient's age to complete this topic Advance Directives Documents on File Type Date Recorded Patient Manager Educational Expl anation Healthcare Directive 07/31/2018 9:48 PM Latest Code Status on File Code Status Date Activated Date Inactivated Comments Full Code 03/02/2023 1:21 PM 03/02/2023 4:41 PM Question Answer Comments Code Status Discussion: Other Code Status History Code Status Date Activated Date Inactivated Comments Full Code 06/18/2022 11:12 PM 06/20/2022 7:19 PM Question Answer Comments Code Status Discussion: Reviewed Preferences Full Code 06/18/2022 10:00 PM 06/18/2022 11:12 PM Question Answer Comments Code Status Discussion: Unable to Assess Preferences, Provider to review later Full Code 07/23/2018 10:36 AM 07/24/2018 1:26 PM Full Code 05/11/2018 9:43 PM 05/13/2018 5:50 PM Question Answer Comments Code Status Discussion: Discussed Care Teams Harness Maker Relationship Specialty Start Date End Date Mary Ulrich, RESIDENTIAL GREEN BUILDING DESIGNER [address] [place] [id number] PCP - General Emergency Medicine 06/18/22
== END 2023-06-19 10:20 | disposition home or self-care (01) ==
PROVIDERS: PCP Nurse Practitioner Family; Visit Provider Nurse Practitioner Family
DX: Z12.5 Encounter for screening for malignant neoplasm of prostate (principal); E78.2 Mixed hyperlipidemia; I10 Essential (primary) hypertension
CPT/HCPCS: 80053; 80061; 85025; G0103

== ENCOUNTER 2023-09-06 10:00 | Outpatient (CLI) | payer OTHER, SELFPAY ==
--- OUTSIDE RECORDS SUMMARY | 2023-09-06 15:56 | XMS_ITS | Clinical Summary ---
Author Name Unknown Organization [facility] Address [place], [place] [address] Care Team Providers Care Slackman Name Role Phone Mary Ulrich NP Primary [...] water Length of Need: 99 1 unit 04/02/2018 Active coenzyme q10 100 mg cap Take 100 mg by mouth once daily. Active sildenafil citrate (VIAGRA) 100 mg tabletIndications:Oth er male erectile dysfunction Take 1 tablet by mouth once daily if needed for Erectile Dysfunction. Take 30min to 4 hours before sexual activity. Max 100mg/24hr. 24 tablet 2 07/30/2018 Active aspirin (ECOTRIN) 81 mg enteric coated tabletIndications:Cor onary artery disease involving [place] heart, angina presence unspecified, unspecified vessel or lesion type Take 1 tablet by mouth once daily with a meal. 06/09/2019 Active candesartan (ATACAND) 4 mg tabletIndications:Acu [...] Take 50 mg by mouth once daily. Active cholecalciferol, Vitamin D3, (Vitamin D-3) 2,000 unit tablet Take 2,000 units by mouth once daily. Active acetaminophen (Tylenol Extra Strength) 500 mg tablet Take 1,000 mg by mouth 3 times daily if needed. Max acetaminophen dose: 4000mg in 24 hrs. Active Potassium Gluconate 595 mg (99 mg) tablet Take 2 Tablets by mouth once daily. Active apixaban (ELIQUIS) 5 mg tabletIndications:pre vent [...] Cough 09/13/2010 05/11/2018 Back pain 09/13/2010 08/09/2020 Encounters Date Type Department Care Team Description 08/29/2023 1:00 PM CDT Office Visit [address] [place] [address] [place] [id number] Ashley Villavicencio PA Follow Up (Post Cardioversion (02/2023) , ) 08/29/2023 Travel 08/27/2023 Travel from Last 3 Months Immunizations Name Administration Dates Next Due AMB [...] Sign Reading Time Taken Comments Blood Pressure 140/86 08/29/2023 12:42 PM CDT Pulse 60 08/29/2023 12:42 PM CDT Temperature 36.3 ??C (97.3 ??F) 03/02/2023 2:00 PM CD T Respiratory Rate 18 03/02/2023 2:00 PM CDT Oxygen Saturation 96% 08/29/2023 12:42 PM CDT Inhaled Oxygen Concentration - - Weight 124.7 kg (275 lb) 08/29/2023 12:42 PM CDT Height 182.9 cm (6') 08/29/2023 12:42 PM CDT Body Mass Index 37.3 08/29/2023 12:42 PM CDT Plan of Treatment Health Maintenance [...] Additional history exists Influenza for age 50-64 01/20/2024 04/02/20 18, 02/12/2017, 04/06/2016, Additional history exists BMI (ht and wt on same day) for age 18+ 08/28/2024 08/29/2023, 09/18/2022, 10/31/2021, Additional history exists Lipids for age 45-75 10/22/2025 10/22/2020, 04/02/2018, 02/12/2017, Additional history exists Tdap Completed 09/27/2010 Pneumococcal series for age 6-64 Aged Out No longer eligible based on patient's age to complete this topic Procedures Procedure Name Priority Date/Time Associated Diagnosis Comments EKG 12 LEAD Routine 08/29/2023 Atrial fibrillation, unspecified type (HC) LIPID PANEL Routine 10/22/2020 2:10 PM CDT Dyslipidemia COLONOSCOPY SCREENING Routine 12/16/2012 Screening for colon cancer from Last 3 Months or Most Recently Relevant to Health Maintenance Results * EKG 12 LEAD (08/29/2023) Ashley COLEMAN EKG ORD * (ABNORMAL) LIPID PANEL (10/22/2020 2:10 PM CDT) CHOLESTEROL,TOTAL 161 100 - 199 mg/dL 10/22/2020 9:07 PM CDT [facility] TRIGLYCERIDES 96 <150 mg/dL 10/22/2020 9:07 PM CDT [facility] HDL CHOLESTEROL 38(L) >40 mg/dL 9:07 PM CDT [facility] NON-HDL CHOLESTEROL 123 <145 mg/dl 10/22/2020 9:07 PM CDT [facility] CHOL/HDL RATIO 4.24 <4.50 10/22/2020 9:07 PM CDT [facility] LDL CHOLESTEROL 104 <=130 mg/dL 10/22/2020 9:07 PM CDT [facility] VLDL CHOLESTEROL 19 mg/dL 10/23/19 9:07 PM CDT [facility] PROVIDER ORDERED STATUS RANDOM 10/22/2020 9:07 PM CDT [facility] Blood BLOOD SPECIMEN / Unknown Venipuncture / Unknown 10/22/2020 2:10 PM CDT 10/22/2020 2:10 PM CDT Lula Jeffers AIRCRAFT NAVIGATOR CHEMISTRY [facility] [address] [place] [address], * COLONOSCOPY SCREENING (12/16/2012) Rosana Delgado NP GI PROCEDURE ORD from Last 3 Months or Most Recently Relevant to Health Maintenance Advance Directives Documents on File Type Date Recorded Patient Hvac Services Professional Expl anation Healthcare Directive 07/31/2018 9:48 PM * Full Code (Latest Code Status on File) Date Activated Date Inactivated Comments 03/02/2023 1:21 PM 03/02/2023 4:41 PM Question Answer Comments Code Status Discussion: Other * Full Code Date Activated Date Inactivated Comments 06/18/2022 11:12 PM 06/20/2022 7:19 PM Question Answer Comments Code Status Discussion: Reviewed Preferences * Full Code Date Activated Date Inactivated Comments 06/18/2022 10:00 PM 06/18/2022 11:12 PM Question Answer Comments Code Status Discussion: Unable to Assess Preferences, Provider to review later * Full Code Date Activated Date Inactivated Comments 07/23/2018 10:36 AM 07/24/2018 1:26 PM * Full Code Date Activated Date Inactivated Comments 05/11/2018 9:43 PM 05/13/2018 5:50 PM Question Answer Comments Code Status Discussion: Discussed Care Teams Slackman Relationship Specialty Start Date End Date Mary Ulrich AIRCRAFT NAVIGATOR [address] [place] [address] PCP - General Emergency Medicine 06/18/22
== END 2023-09-06 10:01 | disposition home or self-care (01) ==
LOC: NFLDREF 15:54
PROVIDERS: PCP Nurse Practitioner Family; Referring Provider Nurse Practitioner Family; Visit Provider Nurse Practitioner Family
DX: Z51.81 Encounter for therapeutic drug level monitoring (principal); I48.19 Other persistent atrial fibrillation; I10 Essential (primary) hypertension
CPT/HCPCS: 80048; 84450; 84460

== ENCOUNTER 2024-06-24 10:24 | Outpatient (CLI) | payer OTHER, SELFPAY | END 2024-06-24 10:25 | disposition home or self-care (01) | PROVIDERS: PCP Nurse Practitioner Family; Visit Provider Nurse Practitioner Family | DX: E78.5 Hyperlipidemia, unspecified (principal); I10 Essential (primary) hypertension; Z12.5 Encounter for screening for malignant neoplasm of prostate; Z13.0 Encounter for screening for diseases of the blood and blood-forming organs and certain disorders involving the immune mechanism | CPT/HCPCS: 80053; 80061; 85025; G0103 ==

== ENCOUNTER 2025-02-21 20:51 | Emergency (ER) | payer OTHER, SELFPAY ==
[2025-02-21] VITALS (21 sets, daily range): BP systolic 114–140; BP diastolic 85–118; PULSE 61–158; RESP 9–24; TEMP 36.7; O2SAT 94–99; BMI 36.8
--- OUTSIDE RECORDS SUMMARY | 2025-02-21 20:53 | XMS_ITS | Clinical Summary ---
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 Triamterene-Hydrochlorothia zid Other - Describe In Comment Field 01/01/2013 Muscle aches, fatigue. Medications CPAPIndications:OS A on CPAP CPAP, heated humidifier, mask, headgear, filters and tubing. For home use. Pressure: 11 cm water Length of Need: 99 1 unit 04/02/20 18 Active coenzyme q10 100 mg cap Take 100 mg by mouth once daily. Active sildenafil citrate (VIAGRA) 100 mg tabletIndications: Other male erectile dysfunction Take 1 tablet by mouth once daily if needed for Erectile Dysfunction. Take 30min to 4 hours before sexual activity. Max 100mg/24hr. 24 tablet 2 07/31/19 19 Active candesartan (ATACAND) 4 mg tabletIndications: Acute on chronic diastolic congestive heart failure (HC) Take 1 Tablet (4 mg) by mouth once daily. 90 Tablet 3 12/07/19 22 Active torsemide (DEMADEX) 20 mg tabletIndications: Cardiomyopathy, unspecified type (HC),S/P ablation of atrial fibrillation Take 1 Tablet (20 mg) by mouth once daily. 30 Tablet 10 12/09/19 22 Active metoprolol succinate (TOPROL XL) 50 mg [...] once daily. Active apixaban (ELIQUIS) 5 mg tabletIndications: prevent thromboembolism in chronic atrial fibrillation Take 1 Tablet (5 mg) by mouth two times daily. 90 Tablet 3 09/19/19 23 Active aspirin (ECOTRIN) 81 mg enteric coated tabletIndications: Coronary artery disease involving algaaciq heart, angina presence unspecified, unspecified vessel or lesion type Take 1 tablet by mouth once daily with a meal. 06/09/19 025 Disconti nued(*Me d complete /Regimen complete /Level of care change) Active Problems Problem Noted Date Diagnosed Date Pain management contract agreement 08/02/2017 BRYCE on CPAP 01/29/2017 CAD (coronary artery disease) 01/17/2011 Aortic root dilation 01/16/2011 Overview (01/16/2011): Reassess annually. Erectile dysfunction 09/13/2010 HTN (hypertension) 09/13/2010 Obesity (BMI 30-39.9) 09/13/2010 Atrial fibrillation with RVR Resolved Problems Problem Noted Date Diagnosed Date Resolved Date Acute on chronic diastolic c ongestive heart failure 05/09/2018 08/09/2020 Inflammatory arthritis 08/22/201405/11 Aortic root dilatation 01/16/201101/16 Overview (01/16/2011): Monitor 1-2 years. Other malaise and fatigue 11/14/2010 SOB (shortness of breath) 10/28/2010 Cough 09/13/2010 05/11/2018 Back pain 09/13/2010 08/09/2020 Encounters Date Type Department Care Team Description 02/09/2025 1:30 PM CDT Office Visit [facility] [place] [address] [place] [address] John Caban MD CV Electrophysiology Est (Annual F/U /Dx: Atrial fibrillation /echo prior /Patient has no concerns. ) 02/09/2025 11:00 AM CDT Ancillary Procedure [facility] [place] [address] [place] [address] 02/09/2025 Travel 02/04/2025 Travel 12/31/2024 Orders Only [facility] [place] [address] [place] [id number] John Caban MD <No scans attached> from Last 3 Months Immunizations Immunization Administration Dates Next Due AMB Influenza, IIV4 PF (=>6 mos Flulaval,Fluzone Fluarix)(Flu Clinic Only) 03/18/2014 Influenza, IIV3 (Age >=3 years) 04/16/2015,05/05,04/09/2012 Influenza, IIV4 04/02/2018, 7,04/06/2016,2013 Influenza, IIV4 (=>6mos) MDV 04/06/2016 Tdap 09/27/2010 [...] 01/02/1988 Smokeless Tobacco: Never Tobacco Cessation:Counseling Given: Not Answered Alcohol Use Standard Drinks/Week Comments Yes 2 (1 standard drink = 0.6 oz pur e alcohol) PHQ-2 Answer Date Recorded PHQ-2 Score 1 07/20/2018 Alcohol Use Answer Date Recorded How often do you have a drink containing alcohol ? 3 02/09/2025 Average Number of Drinks Not on file 025 Frequency of Binge Drinking Not on file 01/20 Financial Resource Strain Answer Date R ecorded Difficulty of Paying Living Expenses Not on file 05/21/2021 Difficulty of Paying Living Expenses Not on file 05/21/2021 Sex and Gender Information Value Date Recorded Sex Assigned at Not on file Legal Sex Male 5:38 AM [employer] Gender Identity Not on file Sexual Orientation Not on file Obstetrics History Last Filed Vital Signs Vital Sign Reading Time Taken Comments Blood Pressure 128/76 02/09/2025 1:25 PM CDT Pulse 68 02/09/2025 1:25 PM CDT Temperature 36.3 C (97.3 F) 03/02/2023 2:00 PM CDT Respiratory Rate 18 03/02/2023 2:00 PM CDT Oxygen Saturation 97% 02/09/2025 1:25 PM CDT Inhaled Oxygen Concentration - - Weight 122.9 kg (271 lb) 02/09/2025 1:25 PM CDT Height 182.9 cm (6') 02/09/2025 1:25 PM CDT Body Mass Index 36.75 02/09/2025 1:25 PM CDT Plan of Treatment Health Maintenance Due Date Last Done Comments HIV for age 15-65 11/10/1975 Hepatitis C screening for age 18-79 1978 Pneumococcal series for age 50+ (1 of 2 - PCV) 11/10/1979 Zoster (shingles) series for age 50+ (1 of 2) 2010 Depression screening for age 12+ 04/02/2019 04/02/2018, 02/12/2017, 08/31/2015 Tetanus booster 09/27/2020 09/27/2010, 09/27/2010 RSV vaccine for adults or (1 - Risk 60-74 years 1-dose series) 2020 Colonoscopy through age 75 12/16/2022 12/16/2012, COVID-19 vaccine series ( season) 2025 03/23/2022, 04/04/2021, 08/24/2020, Additional history exists Influenza Vaccine (#1) 2025 8, 02/12/2017, 04/06/2016, Additional history exists Lipids for age 45-75 10/22/2025 10/22/2020, 04/02/2018, 02/12/2017, Additional history exists BMI (ht and wt on same day) for age 18+ 02/09/2026 02/09/2025, 08/29/2023, 09/18/2022, Additional history exists Hepatitis B series for 19+ Aged Out N o longer eligible based on patient's age to complete this topic Procedures Procedure Name Priority Date/Time Associated Diagnosis Comments EKG 12 LEAD Routine 02/09/2025 1:22 PM CDT Persistent atrial fibrillation (HC) ECHO TTE COMPLETE WO CONTRAST Routine 02/09/2025 11:16 AM CDT Atrial fibrillation, unspecified type (HC) LIPID PANEL Routine 10/22/2020 2:10 PM CDT Dyslipidemia COLONOSCOPY SCREENING Routine 12/16/2012 Screening for colon cancer from Last 3 Months or Most Recently Relevant to Health Maintenance Results * EKG 12 LEAD (02/09/2025 1:22 PM CDT) Pathologist [facility] Interpretation Normal sinus rhythm Minimal voltage criteria for LVH, may be normal variant ( R in aVL ) Borderline ECG When compared with ECG of 02-Mar-2023 13:17, Premature ventricular complexes are no longer Present Ventricular Rate 68 BPM Atrial Rate 68 BPM P-R Interval 168 ms QRS Duration 104 ms QT 430 ms QTc 457 ms P [place] 46 degrees R [place] -10 degrees T [place] 55 degrees 02/09/2025 1:22 PM CDT 02/09/2025 4:55 PM CDT us John Caban MD EKG ORD Final Resul t * ECHO TTE COMPLETE WO CONTRAST (02/09/2025 11:16 AM CDT) AORTIC VALVE MEAN PG 6 mmHg EJECTION FRACTION 58 % LVEDD 5.3 cm EJECTION FRACTION 55 - 60% Anatomical Region Laterality Modality Ultrasound 02/09/2025 10:4 5 AM CDT Narrative 02/09/2025 12:35 PM CDT ECHOCARDIOGRAM SREEDHAR OLIVARES : 1960 64 years Study Date: 02/09/2025 10:45:49 AM Gender: M BP: 140/86 mmHg Height: 182.88 cm BSA: 2.44 m Weight: 124.74 kg Tech: LRT Referring MD: JOHN CABAN Site: [facility] Reading Location: [facility] Patient Location: Outpatient. Procedure: 2D, Color Doppler and Spectral Doppler. Indication for study: Atrial Fibrillation Cardiac Rhythm: Normal sinus.Study quality: Good. Imaging limitations: This study was subject to imaging limitations due to body habitus. Final Impressions: 1. Normal LV size, mildly increased wall thickness, normal global systolic function with an estimated EF of 55 - 60%. 2. Right ventricular cavity size is mildly enlarged, global systolic RV function is normal. 3. Moderately enlarged left atrium. 4. No hemodynamically relevant valve disease. 5. The inferior vena cava is normal sized, respiratory size variation greater than 50%. Comparison Compared to prior exam of 09/25/22, there has been no significant change. Chamber Sizes and Function Normal left ventricular size, mildly increased wall thickness, normal global systolic function with an estimated EF of 55 - 60%. No resting regional wall motion abnormality visualized. Left atrial size is moderately enlarged. Right ventricular cavity size is mildly enlarged, global systolic RV function is normal. The right atrium is severely enlarged. Right atrial volume index is 43 ml/m . Right atrial area is 29 cm . The pulmonary artery is not well visualized. The sinus of Valsalva is normal for age/sex/bsa. The ascending aorta is normal for age/sex/bsa. Valves, RV Pressures and Diastolic Function The aortic valve is normal in structure and trileaflet, no stenosis and no regurgitation. The mitral valve is normal in structure, mild mitral regurgitation. Normal diastolic function. The tricuspid valve is normal in structure, mild tricuspid regurgitation. The pulmonic valve is not well visualized. Trace pulmonary regurgitation. Masses, Effusion, Shunts There is no pericardial effusion. The inferior vena cava is normal sized, respiratory size variation greater than 50%. No left to right shunting was detected by limited color flow Doppler interrogation of the interatrial septum. MEASUREMENTS AND CALCULATIONS 2-D Measurements and LV Function: LVID (d) 5.3 cm LV FS% (2D) 10 % LVID (s) 4.7 cm LVOT diameter 2.2 cm IVS (d) 1.3 cm HR 55 bpm LVPW (d) 1.2 cm LA Vol index 47 ml/m2 Ao Sinus 4.2 cm RA Vol index 43 ml/m2 Ao Sinus ULN 4.2 cm * RA area 29 cm Asc Ao 4.1 cm RV Basal Diam 4.6 cm Asc Ao ULN 4.2 cm * * Input BSA outside of range, reported values correspond to BSA = 2.1 Diastology: Mitral Tissue Doppler E Peak 1.1 m/s e', Septum 0.09 m/s A Peak 0.8 m/s e', Lateral 0.10 m/s E/A 1.3 E/e' Average 11.69 DT 219 msec Aortic Valve: Vmax 1.7 m/s MANNY (V) 2.72 cm VTI 0.39 m MANNY (I) 2.63 cm LVOT V max 1.2 m/s Max PG 12 mmHg LVOT VTI 0.27 m Mean PG 6 mmHg SV 104 ml Dim Index 0.68 SV index 43 ml/m CO 5.7 l/min CI 2.3 l/min/m Mitral Valve: MVA 3.5 cm MV P 1/2 64 msec Tricuspid Valve and estimated PA pressures: TAPSE 3.5 cm Pulmonic Valve: PV AT 127 msec . This study was interpreted by an [facility] accredited facility. Final Procedure Note Cedric Vieira MD - 02/09/2025 ECHOCARDIOGRAM SREEDHAR OLIVARES : 1960 64 years Study Date: 02/09/2025 10:45:49 AM Gender: M BP: 140/86 mmHg Height: 182.88 cm BSA: 2.44 m Weight: 124.74 kg Tech: LRT Referring MD: JOHN CABAN Site: [facility] Reading Location: [facility] Patient Location: Outpatient. Procedure: 2D, Color Doppler and Spectral Doppler. Indication for study: Atrial Fibrillation Cardiac Rhythm: Normal sinus.Study quality: Good. Imaging limitations: This study was subject to imaging limitations due tobody habitus. Final Impressions: 1. Normal LV size, mildly increased wall thickness, normal globalsystolic function with an estimated EF of 55 - 60%. 2. Right ventricular cavity size is mildly enlarged, global systolic RVfunction is normal. 3. Moderately enlarged left atrium. 4. No hemodynamically relevant valve disease. 5. The inferior vena cava is normal sized, respiratory size variationgreater than 50%. Comparison Compared to prior exam of 09/25/22, there has been no significant change. Chamber Sizes and Function Normal left ventricular size, mildly increased wall thickness, normalglobal systolic function with an estimated EF of 55 - 60%. No restingregional wall motion abnormality visualized. Left atrial size ismoderately enlarged. Right ventricular cavity size is mildly enlarged,global systolic RV function is normal. The right atrium is severelyenlarged. Right atrial volume index is 43 ml/m . Right atrial area is 29cm . The pulmonary artery is not well visualized. The sinus of Valsalvais normal for age/sex/bsa. The ascending aorta is normal forage/sex/bsa. Valves, RV Pressures and Diastolic Function The aortic valve is normal in structure and trileaflet, no stenosis and noregurgitation. The mitral valve is normal in structure, mild mitralregurgitation. Normal diastolic function. The tricuspid valve is normal instructure, mild tricuspid regurgitation. The pulmonic valve is not wellvisualized. Trace pulmonary regurgitation. Masses, Effusion, Shunts There is no pericardial effusion. The inferior vena cava is normal sized,respiratory size variation greater than 50%. No left to right shunting wasdetected by limited color flow Doppler interrogation of the interatrialseptum. MEASUREMENTS AND CALCULATIONS 2-D Measurements and LV Function: LVID (d) 5.3 cm LV FS% (2D) 10% LVID (s) 4.7 cm LVOT diameter2.2 cm IVS (d) 1.3 cm HR 55bpm LVPW (d) 1.2 cm LA Vol index 47ml/m2 Ao Sinus 4.2 cm RA Vol index 43ml/m2 Ao Sinus ULN 4.2 cm * RA area 29cm Asc Ao 4.1 cm RV Basal Diam4.6 cm Asc Ao ULN 4.2 cm * * Input BSA outside of range, reported values correspond to BSA = 2.1 Diastology: Mitral Tissue Doppler E Peak 1.1 m/s e', Septum 0.09 m/s A Peak 0.8 m/s e', Lateral 0.10 m/s E/A 1.3 E/e' Average 11.69 DT 219 msec Aortic Valve: Vmax 1.7 m/s MANNY (V) 2.72 cm VTI 0.39 m MANNY (I) 2.63 cm LVOT V max 1.2 m/s Max PG 12 mmHg LVOT VTI 0.27 m Mean PG 6 mmHg SV 104 ml Dim Index 0.68 SV index 43 ml/m CO 5.7 l/min CI 2.3 l/min/m Mitral Valve: MVA 3.5 cm MV P 1/2 64 msec Tricuspid Valve and estimated PA pressures: TAPSE 3.5 cm Pulmonic Valve: PV AT 127 msec . This study was interpreted by an [facility] accredited facility. Final John Caban MD ECHO ORD Final Resul t * (ABNORMAL) LIPID PANEL (10/22/2020 2:10 PM CDT) CHOLESTEROL,TOTAL 161 100 - 199 mg/dL 10/22/2020 9:07 PM CDT [facility] TRIGLYCERIDES 96 <150 mg/dL 10/22/2020 9:07 PM [facility] HDL CHOLESTEROL 38(L) >40 mg/dL 9:07 PM [facility] NON-HDL CHOLESTEROL 123 <145 mg/dl 10/22/2020 9:07 PM T [facility] CHOL/HDL RATIO 4.24 <4.50 10/22/2020 9:07 PM [facility] LDL CHOLESTEROL 104 <=130 mg/dL 10/22/2020 9:07 PM [facility] VLDL CHOLESTEROL 19 mg/dL 10/23/19 9:07 PM T [facility] PROVIDER ORDERED STATUS RANDOM 10/22/2020 9:07 PM CDT [facility] Blood BLOOD SPECIMEN / Unknown Venipuncture / Unknown 10/22/2020 2:10 PM CDT 10/22/2020 2:10 PM CDT Lula Jeffers NP CHEMISTRY Final Result [facility] 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
--- NOTE | 2025-02-21 21:40 | ED_ITS ---
HPI - General Adult General Chief complaint: Arrhythmia/Palpitations Stated complaint: high heart rate Time Seen by Provider: 02/21/25 21:25 Source: patient Mode of arrival: ambulatory Limitations: no limitations History of Present Illness HPI narrative: [age] male with a notable history of atrial fibrillation presents to the emergency department for evaluation of rapid heart rate for the past 2 hours. No injury or trauma. Has had this multiple times in the past and has undergone cardioversion 4 times before. He would like to proceed with cardioversion. He last ate just under 3 hours ago. Full meal. He has had no recent fevers or signs of illness. He denies any chest pain or severe shortness of breath. No recent neurological changes. No GI changes. Did not try any interventions or medications to help with symptoms prior to arrival. He does have a history of sleep apnea but no prior anesthesia complications. He has undergone bilateral knee replacements with no issues. No recent changes in his medications, last saw lead miner blasting 10 days ago. Prior ED notes reviewed. Medications accurate as listed, reviewed with patient. Allergies reviewed. No changes. Nonsmoker. ROS is notable for the rapid heart rate only, otherwise reports benign times 12 systems. Related Data Home Medications ?Medication ?Instructions ?Recorded ?Confirmed cholecalciferol (vitamin D3) 50 50 mcg PO DAILY 02/21/25 mcg (2,000 unit) capsule coenzyme Q10 100 mg capsule 100 mg PO DAILY 06/27/22 1 potassium gluconate 550 mg (90 mg) 1,100 mg PO DAILY 0 06/27/22 02/21/25 tablet vitamin B complex (B 1 tab PO DAILY 10/25/2209/12 Complex-Vitamin B12 tablet) Previous Rx's ?Medication ?Instructions ?Recorded acetaminophen 500 mg capsule 500 - 1,000 mg (1 - 2 x 5 00 mg) PO 11/02/22 Q6H PRN #100 caps apixaban 5 mg tablet (Eliquis) 5 mg PO BID 90 days #18 0 tabs 06/24/24 candesartan 4 mg tablet 4 mg PO QDAY #90 tabs metoprolol succinate 50 mg 50 mg PO QDAY #90 tabs 09/12 tablet,extended release 24 hr sildenafil 100 mg tablet 100 mg PO Q24H PRN sexual ac tivity 06/24/24 #10 tabs torsemide 20 mg tablet 20 mg PO DAILY 90 days #100 tabs 06/24/24 Allergies Allergy/AdvReac Type Severity Reaction Status Date / Time hydrochlorothiazide Allergy Verified 06/24/24 09:53 hydroxychloroquine Allergy Verified 06/24/24 09:53 lisinopril Allergy Verified 06/24/24 09:53 ragweed pollen Allergy Verified 06/24/24 09:53 triamterene Allergy Verified 06/24/24 09:53 [facility] Medical History Atrial fibrillation with rapid ventricular response ?I48.91 - Unspecified atrial fibrillation (ICD-10) History of atrial fibrillation ?Z86.79 - Personal history of other diseases of the circulatory system (ICD- 10) PMR (polymyalgia rheumatica) ?M35.3 - Polymyalgia rheumatica (ICD-10) Food intolerance ?K90.49 - Malabsorption due to intolerance, not elsewhere classified (ICD-10) Dairy product intolerance ?K90.49 - Malabsorption due to intolerance, not elsewhere classified (ICD-10) Acute on chronic diastolic congestive heart failure ?I50.33 - Acute on chronic diastolic (congestive) heart failure (ICD-10) History of peripheral edema ?Z87.898 - Personal history of other specified conditions (ICD-10) History of cardiomyopathy ?Z86.79 - Personal history of other diseases of the circulatory system (ICD- 10) Coronary artery disease ?I25.10 - Atherosclerotic heart disease of [place] coronary artery without angina pectoris (ICD-10) Complication of statin therapy ?T46.6X5A - Adverse effect of antihyperlipidemic and antiarteriosclerotic drugs, initial encounter (ICD-10) Aortic root dilatation ?I77.810 - Thoracic aortic ectasia (ICD-10) History of cardioversion ?Z92.89 - Personal history of other medical treatment (ICD-10) Sleep apnea ?G47.30 - Sleep apnea, unspecified (ICD-10) Hypertension ?I10 - Essential (primary) hypertension (ICD-10) Surgical History (Updated 03/27/23 @ 12:56 by Kate Carlos) Status post total left knee replacement (02/21/23) ?Z96.652 - Presence of left artificial knee joint (ICD-10) History of total right knee replacement (11/01/22) ?Z96.651 - Presence of right artificial knee joint (ICD-10) History of radiofrequency ablation procedure for cardiac arrhythmia ?Z98.890 - Other specified postprocedural states (ICD-10) History of vasectomy ?Z98.52 - Vasectomy status (ICD-10) History of colonoscopy ?Z98.890 - Other specified postprocedural states (ICD-10) Family History (Updated 09/03/23 @ 15:01 by Mary lUrich APRN, [employer] SAL[employer] MANAGER) Mother Rheumatoid arthritis Heart disease Psoriasis Sister FH: total knee replacement Sister History of bilateral knee replacement Obesity Son Cardiomyopathy Father Prostate enlargement Paternal Grandfather Colon cancer Social History (Updated 06/24/24 @ 11:57 by Mary Ulrich APRN, [employer] SALES MANAGER) Narrative: He lives with his , [place], [facility], and the live in a two-story house. 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 The patient exercises regularly. Alcohol rare. No illicit drug use. Non-smoker. What is your current living situation?: I presently have a place to live Problems where you live: no known problems In the past 12 months, utilities in danger of being shut off: no In past 12 months, lack of transportation kept you from medical appts, meetings, work, or getting things needed for daily living: no In the past 12 mos, have been you worried that your food would run out before you had money to buy more?: never true In the past 12 mos, the food you bought just didn't last and you didn't have money to buy more?: never true Highest level of school completed/degree received: Bachelor's degree Smoking Status: Former smoker What tobacco products do you use: cigarettes Years smoked: 10 Smoking quit date/years: >15 years ago Do you use any of these nicotine containing products: None Second hand tobacco smoke exposure: No How often do you have a drink containing alcohol: 2-4 times a month Alcohol type: hard liquor How many standard drinks containing alcohol do you have on a typical day: 1 or 2 How often do you have six or more drinks on one occasion: Never AUDIT-C Alcohol total score: 2 Non-prescribed substance use: denies use Caffeine: No How often does anyone, including family, friends and others, physically hurt you : never How often does anyone, including family, friends and others, insult or talk down to you: never How often does anyone, including family, friends and others, threaten you with harm: never How often does anyone, including family, friends and others, scream or curse at you: never service: No Exam Const: Vital Signs, click to edit/add: Vital Signs - 24 hr 02/21/25 21:17 02/21/25 21:41 02/21/25 22:02 Temperature 98.1 F Pulse Rate 154 H Pulse Rate [Pulse Oximeter] 158 H Respiratory Rate 16 22 Blood Pressure 114/99 H Blood Pressure [Ri ght Upper Arm] 125/92 H Pulse Oximetry 97 97 Oxygen Delivery Me thod Room Air Documenting provider has reviewed patient's vital signs: yes Common normals: no apparent distress Exam limitations: altered mental status General appearance: cooperative and well kempt HENMT: Common normals: normocephalic, moist oral mucous membranes and oropharynx normal Head and scalp: normocephalic Face and sinus: normal facial exam Mouth: oral and palatal mucosa normal Eye: Common normals: conjunctivae normal General eye: normal appearance of both eyes Conjunctiva: conjunctiva(e) normal Neck & C-Spine: Common normals: full ROM and no lymphadenopathy Resp: Common normals: normal respiratory effort, no use of accessory muscles and clear to auscultation bilaterally Effort & inspection: able to speak in complete sentences Auscultation: clear to auscultation bilaterally Cardio: Other: Rapid but sounds regular. No murmur. S1 and S2 are heard GI: Common normals: Normal to inspection, nondistended, normoactive bowel sounds present, soft to palpation and no hepatosplenomegaly Palpation: soft and no hepatosplenomegaly Extremity: Common normals: normal capillary refill and no pedal edema Psych: Appearance: well kempt Attitude: engaged Activity/motor behavior: appropriate eye contact Mood and affect: euthymic mood Insight: insight good Judgement: judgment good Skin: Common normals: no rashes or lesions noted General skin exam: no rashes or lesions noted Course Course ED Course: 64-year-old male with history of atrial fibrillation, up-to-date on anticoagulation with Eliquis. Presenting with 2 hour history of symptoms consistent with return to atrial fibrillation. Multiple prior successful cardioversions. No significant chest pain or shortness of breath. No indications for lab testing. EKG is performed confirming 2-1 atrial flutter. Last meal just under 3 hours ago. Counseled patient that that is a little soon especially with his history of sleep apnea and obesity to do the cardioversion unless he was unstable due to the unnecessary risk of aspiration. He was understanding of this. I recommended that since we need to wait at least another hour that we try diltiazem and magnesium. Even if it does not cause a cardioversion, it does tend to help someone stay in sinus rhythm after cardioversion. He was understanding of this. Will bolus 1 L fluid, continue on cardiac catheterization technologist, reassess at about 10 30. Reevaluation(s) Reevaluation #1: Patient reassessed at 10:40 a.m.. Remains in atrial flutter, 2-1 ratio. Written consent is obtained, risks and benefits of cardioversion were explained. He is agreeable to this. Dr. Micaela Moy was present as well and agrees to perform sedation and airway management if needed. See separate procedure note. 100 mg of propofol were given for sedation, excellent results. Patient cardioverted at 120 joules with response to atrial fib from atrial flutter, then 200 joules to conversion to sinus rhythm. Well tolerated. Talking and alert within 5 minutes of procedure completion. He is reexamined 20 minutes postprocedure, fully alert, ambulating without difficulty. No questions or concerns, feeling asymptomatic. Counseled patient that we are going to watch for another 20-25 minutes in if things continue to show good progress, will plan to discharge. He will continue all of his medications as prescribed with no changes. Typical parameters for cardioversion reviewed. He has no further questions. Anticipate discharge at 11:30 a.m. if everything looks complete. Vital Signs Vital signs: Initial Vital Signs Temperature 98.1 F 02/21/25 21:17 Temperature Source Temporal Artery Scan 02/21/25 21:17 Pulse Rate 158 H 02/21/25 21:17 Respiratory Rate 16 02/21/25 21:17 Blood Pressure 125/92 H 02/21/25 21:17 Blood Pressure Mean 103 02/21/25 21:17 Blood Pressure Position Sitting 02/21/25 21:17 Pulse Oximetry 97 02/21/25 21:17 Oxygen Delivery Method Room Air 02/21/25 21:17 Vital Signs Temperature 98.1 F 02/21/25 21:17 Pulse Rate 158 H 02/21/25 21:17 Respiratory Rate 16 02/21/25 21:17 Blood Pressure 125/92 H 02/21/25 21:17 Pulse Oximetry 97 02/21/25 21:17 Oxygen Delivery Method Room Air 02/21/25 21:17 Temperature 98.1 F 02/21/25 21:17 Pulse Rate 154 H 02/21/25 22:02 Respiratory Rate 22 02/21/25 22:02 Blood Pressure 114/99 H 02/21/25 22:02 Pulse Oximetry 97 02/21/25 21:41 Oxygen Delivery Method Room Air 02/21/25 21:17 Medications Administered Medications: Discontinued Medications Generic Name Dose Route Start Last Admin Trade Name Freq PRN Reason Stop Dose Admin Diltiazem HCl 10 mg 02/21/25 21:38 02/21/25 21:42 Diltiazem 5 Mg/Ml Inj IVP 02/21/25 21:39 10 mg ONCE ONE Administration Sodium Chloride 1,000 mls @ 1,000 mls/hr 02/21/25 21:26 02/21/25 22:50 0.9 % Sodium Chloride 1000 Ml IV 02/21/25 22:25 Infused .Q1H MICHELLE Infusion Magnesium Sulfate/Dextrose 1 gm in 100 mls @ 100 mls/hr 02/21/25 21:39 02/21/25 22:50 Magnesium Sulf 1 G/100 Ml IVPB 02/21/25 22:38 Infused ONCE ONE Infusion Medical Decision Making ECG Data Attestation: I personally reviewed and interpreted this ECG as follows: Prior ECG tracings: available for review Interpretation: Atrial flutter with a rate of 2-1, rate of 158. No obvious ischemic changes. Follow-up EKG performed at 2255 showing sinus rhythm with a rate in the 70s. Discharge Plan Discharge Clinical Impression: Atrial flutter Patient Disposition: Home w/ Parent or Adult Condition: Improved Instructions: Atrial Flutter (DC) Additional Instructions: I am thankful that the cardioversion was successful. You may have some discomfort in the chest for the next few days. It is okay to use Tylenol for this. You will continue taking your Eliquis and all other medications as prescribed. If you have future similar events, try not to eat before coming to the emergency department, we do recommend coming into the ED if symptoms do not improve within 4 hours of home monitoring. He should always come in right away if you are severely short of breath, have chest pain or other alarming symptoms. Activity Level: No Restrictions Discharge Diet: Regular Prescriptions: No Action vitamin B complex [B Complex-Vitamin B12] Tablet 1 tab PO DAILY sildenafil 100 mg tablet 100 mg PO Q24H PRN (Reason: sexual activity) Qty: 10 12RF metoprolol succinate 50 mg tablet extended release 24 hr 50 mg PO QDAY Qty: 90 3RF torsemide 20 mg tablet 20 mg PO DAILY 90 Days Qty: 100 3RF Rx Instructions: torsemide 20 mg daily and 20 mg PRN weight gain above 3 pounds in one day Eliquis 5 mg tablet 5 mg PO BID 90 Days Qty: 180 3RF candesartan 4 mg tablet 4 mg PO QDAY Qty: 90 3RF potassium gluconate 550 mg (90 mg) tablet 1,100 mg PO DAILY cholecalciferol (vitamin D3) 50 mcg (2,000 unit) capsule 50 mcg PO DAILY coenzyme Q10 100 mg capsule 100 mg PO DAILY acetaminophen 500 mg capsule 500 - 1,000 mg PO Q6H MDD 4000mg PRNQty: 100 0RF Follow Up/Referrals: Mary Ulrich, CIRCLE EDGER, GOLF SALES MANAGER [Primary Care Provider, [facility]] Stand Alone Forms: [facility] Info Instructions Procedures Procedural Sedation Pre procedure diagnosis: Atrial flutter Post procedure diagnosis: Resolved Written consent by: patient Verification/time out: correct patient and correct procedure Name of person perfmorming the procedure: Dot Presley Sedation provider same as procedural provider: Gabby (Dr. Julia Moy) Indication: other (Cardioversion) Presedation Evaluation: Atrial flutter. History of obstructive sleep apnea ASA Class: II Time of Last PO Intake: 18:30 Mallampati classification: III. soft palate and base of uvula visible Preparation: cardiac catheterization technologist applied, pulse oximeter, supplemental O2 applied, suction/airway equipment at bedside and IV secured IV Propofol dose (mg): 100 Patient Tolerated Procedure: well Complications: none Interventions: oxygen applied and airway repositioned Additional Procedures Procedure name: Synchronized cardioversion Pre procedure diagnosis: Atrial flutter Post procedure diagnosis: , resolved Written consent by: patient Verification/time out: correct patient and correct procedure Conclusion: patient tolerated procedure Additional comments: Written consent obtained. Preprocedural exam performed. Patient failed to respond to magnesium and diltiazem. We are waiting at least 4 hours from last ingestion to perform procedure. Written consent obtained, Dr. Micaela Moy performing procedural sedation. 100 mg of propofol was given. Oxygen applied. Jaw thrust maneuver used to open airway. Patient received synchronized cardioversion of 120 joules which did break the atrial flutter but resulted in atrial fibrillation. Patient then received synchronized cardioversion at 200 joules which resulted in sinus rhythm. Patient was observed and gained alertness within about 3 minutes of procedure completion. Confirmatory EKG showing sinus rhythm. He was alert, moving all extremities. 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 It was very sweet. He will be observed in the ED for about 45 minutes and as long as he is fully alert, remains in sinus rhythm, asymptomatic and is neurologically back to baseline, will plan to discharge.
[2025-02-21] MEDS: dilTIAZem 5 MG/ML inj 10 MG IVP (21:42)
[2025-02-21] MEDS: MAGNESIUM SULF 1 G/100 ML 1 GM/100 ML PIGGYBACK IVPB (21:44)
[2025-02-21] MEDS: PROPOFOL 10 MG/ML INJ 100 MG IVP (22:53)
== END 2025-02-21 23:50 | disposition home or self-care (01) ==
PROVIDERS: Emergency Provider Family Medicine; PCP Nurse Practitioner Family
DX: I48.92 Unspecified atrial flutter (principal)
CPT/HCPCS: 92960; 93005; 94761; 99284; 99285; 99291; J2704; J3475; J7030

== ENCOUNTER 2025-03-22 10:46 | Emergency (ER) | payer OTHER, SELFPAY ==
[2025-03-22] VITALS (19 sets, daily range): BP systolic 104–138; BP diastolic 76–117; PULSE 59–155; RESP 9–21; TEMP 36; O2SAT 93–99
--- OUTSIDE RECORDS SUMMARY | 2025-03-22 10:47 | XMS_ITS | Clinical Summary ---
Author Organization [employer] [facility] [employer] Address [address] [place] [id number] Care Team Providers Care Bullard Machine Operator Name Role Phone Mary Ulrich NP Primary Care Provider Amrita vailable Allergies Active Allergy Reactions Criticality Noted Date Comments Lisinopril Cough 01/01/2013 Hydroxychloroquine Mental Status Change 04/20/2016 Ragweed Pollen Other - Describe In Comment Field 02/12/2017 Seasonal allergies, sneezing. Triamterene-Hydrochlorothia zid Other - Describe In Comment Field 01/01/2013 Muscle aches, fatigue. Medications CPAPIndications:BRYCE on CPAP CPAP, heated humidifier, mask, headgear, filters and tubing. For home use. Pressure: 11 cm water Length of Need: 99 1 unit 04/02/20 18 Active coenzyme q10 100 mg cap Take 100 mg by mouth once daily. Active sildenafil citrate (VIAGRA) 100 mg tabletIndications:O ther male erectile dysfunction Take 1 tablet by mouth once daily if needed for Erectile Dysfunction. Take 30min to 4 hours before sexual activity. Max 100mg/24hr. 24 tablet 2 07/31/19 19 Active candesartan (ATACAND) 4 mg tabletIndications:A cute on chronic diastolic congestive heart failure (HC) Take 1 Tablet (4 mg) by mouth once daily. 90 Tablet 3 12/07/19 22 Active torsemide (DEMADEX) 20 mg tabletIndications:C ardiomyopathy, unspecified type (HC),S/P ablation of atrial fibrillation [...] once daily. Active apixaban (ELIQUIS) 5 mg tabletIndications:p revent thromboembolism in chronic atrial fibrillation Take 1 Tablet (5 mg) by mouth two times daily. 90 Tablet 3 09/19/19 23 Active Active Problems Problem Noted Date Diagnosed [...] Description 02/09/2025 1:30 PM CDT Office Visit [facility] - [facility] [place] [place] [address] Landon Caban MD CV Electrophysiology Est (Annual F/U /Dx: Atrial fibrillation /echo prior /Patient has no concerns. ) 02/09/2025 11:00 AM CDT Ancillary Procedure [facility] [place] [address] 02/09/2025 Travel 02/04/2025 Travel 12/31/2024 Orders Only [facility] - Pool [address] [place] [id number] Landon Caban MD <No scans attached> from Last [...] on file Legal Sex Male 5:38 AM REGULATORY LEAD Gender Identity Not on file Sexual Orientation [...] 2020 Colonoscopy through age 75 12/16/2022 12/16/2012, Influenza Vaccine (#1) 2025 8, 02/12/2017, 04/06/2016, [...] EKG 12 LEAD (02/09/2025 1:22 PM CDT) Interpretation Normal sinus rhythm Minimal voltage criteria for LVH, may be normal variant ( R in aVL ) Borderline ECG When compared with ECG of 02-Mar-2023 13:17, Premature ventricular complexes are no longer Present Ventricular Rate 68 BPM Atrial Rate 68 BPM P-R Interval 168 ms QRS Duration 104 ms QT 430 ms QTc 457 ms P [place] 46 degrees R [place] -10 degrees T [place] 55 degrees 02/09/2025 1:22 PM CDT 02/09/2025 4:55 PM CDT us Landon Caban MD EKG ORD Final Resul t [...] Weight: 124.74 kg Tech: LRT Referring MD: LANDON CABAN Site: [facility] Reading Location: [facility] Patient Location: Outpatient. Procedure: 2D, [...] . This study was interpreted by an [facility] accredited facility. Final Procedure Note Cedric Vieira MD - 02/09/2025 ECHOCARDIOGRAM SREEDHAR OLIVARES : 1960 64 years Study Date: 02/09/2025 10:45:49 AM Gender: M BP: 140/86 mmHg Height: 182.88 cm BSA: 2.44 m Weight: 124.74 kg Tech: LRT Referring MD: LANDON CABAN Site: [facility] Reading Location: [facility] Patient Location: Outpatient. Procedure: 2D, [...] 50%. Comparison Compared to prior exam of 5/8/23, there has been no significant change. Chamber [...] interpreted by an [facility] accredited facility. Final Landon Caban MD ECHO ORD Final Resul t * (ABNORMAL) LIPID PANEL (10/22/2020 2:10 PM CDT) Pathologist [facility] CHOLESTEROL,TOTAL 161 100 - 199 mg/dL 10/22/2020 9:07 PM CDT [facility] TRIGLYCERIDES 96 <150 mg/dL 10/22/2020 9:07 PM CDT [facility] HDL CHOLESTEROL 38(L) >40 mg/dL 9:07 PM CDT [facility] NON-HDL CHOLESTEROL 123 <145 mg/dl 10/22/2020 9:07 PM CDT [facility] CHOL/HDL RATIO 4.24 <4.50 10/22/2020 9:07 PM CDT [facility] LDL CHOLESTEROL 104 <=130 mg/dL 10/22/2020 9:07 PM CDT [facility] VLDL CHOLESTEROL 19 mg/dL 10/23/19 9:07 PM CDT [facility] PROVIDER ORDERED STATUS RANDOM 10/22/2020 9:07 PM CDT [facility] Blood BLOOD SPECIMEN / Unknown Venipuncture / Unknown 10/22/2020 2:10 PM CDT 10/22/2020 2:10 PM CDT us Lula Jeffers NP CHEMISTRY Final Result [facility] [address] [place] [address], [place] * COLONOSCOPY SCREENING (12/16/2012) Rosana Delgado NP GI PROCEDURE ORD Final Resul t from Last 3 Months or Most Recently Relevant to Health Maintenance Insurance [facility] Advance Directives Documents on File Type Date Recorded Patient Bank Representative Expl anation Healthcare Directive 07/31/2018 9:48 PM [...] Comments Code Status Discussion: Discussed Care Teams Bullard Machine Operator Relationship Specialty Start Date End Date Mary Ulrich NP [address] [place] [address] PCP - General Emergency Medicine 06/18/22
--- NOTE | 2025-03-22 11:07 | ED.GENADULT ---
HPI - General Adult General Chief complaint: Unspecified Complaint, Adult Stated complaint: AFIB Time Seen by Provider: 03/22/25 10:51 Source: patient Mode of arrival: ambulatory Limitations: no limitations History of Present Illness HPI narrative: 64-year-old male presenting today knee atrial fibrillation. He states that his watch alerted him that he was in AFib approximately 2 hours ago. He is completely asymptomatic. He states that this occurred approximately 1 month ago and he required cardioversion. Patient states that he has been cardioverted now 4 or 5 times in the past with success. Before month ago his last episode of atrial fibrillation was in 2022. He states that he is anticoagulated and is on daily metoprolol. He did have alcohol last night. He does have a history of sleep apnea. Last echocardiogram in 2022, did not show any congestive heart failure. Patient denies any reaction anesthesia in the past. He has already had an ablation. Patient has not eaten anything since last night. Did have coffee this morning, approximately 3 hours ago. Related Data Home Medications ?Medication ?Instructions ?Recorded ?Confirmed cholecalciferol (vitamin D3) 50 50 mcg PO DAILY 06/27/22 03/22/25 mcg (2,000 unit) capsule coenzyme Q10 100 mg capsule 100 mg PO DAILY 06/27/22 03/22/25 potassium gluconate 550 mg (90 mg) 1,100 mg PO DAILY 06/27/22 03/22/25 tablet vitamin B complex (B 1 tab PO DAILY 10/25/22 03/22/25 Complex-Vitamin B12 tablet) Previous Rx's ?Medication ?Instructions ?Recorded acetaminophen 500 mg capsule 500 - 1,000 mg (1 - 2 x 500 mg) PO 11/02/22 Q6H PRN #100 caps apixaban 5 mg tablet (Eliquis) 5 mg PO BID 90 days #180 tabs 06/24/24 candesartan 4 mg tablet 4 mg PO QDAY #90 tabs 06/24/24 metoprolol succinate 50 mg 50 mg PO QDAY #90 tabs 06/24/24 tablet,extended release 24 hr sildenafil 100 mg tablet 100 mg PO Q24H PRN sexual activity 06/24/24 #10 tabs torsemide 20 mg tablet 20 mg PO DAILY 90 days #100 tabs 06/24/24 Allergies Allergy/AdvReac Type Severity Reaction Status Date / Time hydrochlorothiazide Allergy Verified 03/22/25 10:52 hydroxychloroquine Allergy Verified 03/22/25 10:52 lisinopril Allergy Verified 03/22/25 10:52 ragweed pollen Allergy Verified 03/22/25 10:52 triamterene Allergy Verified 03/22/25 10:52 Review of Systems Status of ROS: Reports: 10 or more systems reviewed and unremarkable except as noted in History and below [facility] Medical History Atrial fibrillation with rapid ventricular response ?I48.91 - Unspecified atrial fibrillation (ICD-10) History of atrial fibrillation ?Z86.79 - Personal history of other diseases of the circulatory system (ICD-10) PMR (polymyalgia rheumatica) ?M35.3 - Polymyalgia rheumatica (ICD-10) Food intolerance ?K90.49 - Malabsorption due to intolerance, not elsewhere classified (ICD-10) Dairy product intolerance ?K90.49 - Malabsorption due to intolerance, not elsewhere classified (ICD-10) Acute on chronic diastolic congestive heart failure ?I50.33 - Acute on chronic diastolic (congestive) heart failure (ICD-10) History of peripheral edema ?Z87.898 - Personal history of other specified conditions (ICD-10) History of cardiomyopathy ?Z86.79 - Personal history of other diseases of the circulatory system (ICD-10) Coronary artery disease ?I25.10 - Atherosclerotic heart disease of [place] coronary artery without angina pectoris (ICD-10) Complication of statin therapy ?T46.6X5A - Adverse effect of antihyperlipidemic and antiarteriosclerotic drugs, initial encounter (ICD-10) Aortic root dilatation ?I77.810 - Thoracic aortic ectasia (ICD-10) History of cardioversion ?Z92.89 - Personal history of other medical treatment (ICD-10) Sleep apnea ?G47.30 - Sleep apnea, unspecified (ICD-10) Hypertension ?I10 - Essential (primary) hypertension (ICD-10) Surgical History Status post total left knee replacement (02/21/23) ?Z96.652 - Presence of left artificial knee joint (ICD-10) History of total right knee replacement (11/01/22) ?Z96.651 - Presence of right artificial knee joint (ICD-10) History of radiofrequency ablation procedure for cardiac arrhythmia ?Z98.890 - Other specified postprocedural states (ICD-10) History of vasectomy ?Z98.52 - Vasectomy status (ICD-10) History of colonoscopy ?Z98.890 - Other specified postprocedural states (ICD-10) Family History Mother Rheumatoid arthritis Heart disease Psoriasis Sister FH: total knee replacement Sister History of bilateral knee replacement Obesity Son Cardiomyopathy Father Prostate enlargement Paternal Grandfather Colon cancer Social History Narrative: He lives with his , Юлия, [place], and the live in a two-story house. 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 The patient exercises regularly. Alcohol rare. No illicit drug use. Non-smoker. What is your current living situation?: I presently have a place to live Problems where you live: no known problems In the past 12 months, utilities in danger of being shut off: no In past 12 months, lack of transportation kept you from medical appts, meetings, work, or getting things needed for daily living: no In the past 12 mos, have been you worried that your food would run out before you had money to buy more?: never true In the past 12 mos, the food you bought just didn't last and you didn't have money to buy more?: never true Highest level of school completed/degree received: Bachelor's degree Smoking Status: Former smoker What tobacco products do you use: cigarettes Years smoked: 10 Smoking quit date/years: >15 years ago Do you use any of these nicotine containing products: None Second hand tobacco smoke exposure: No How often do you have a drink containing alcohol: 2-4 times a month Alcohol type: hard liquor How many standard drinks containing alcohol do you have on a typical day: 1 or 2 How often do you have six or more drinks on one occasion: Never AUDIT-C Alcohol total score: 2 Non-prescribed substance use: denies use Caffeine: No How often does anyone, including family, friends and others, physically hurt you: never How often does anyone, including family, friends and others, insult or talk down to you: never How often does anyone, including family, friends and others, threaten you with harm: never How often does anyone, including family, friends and others, scream or curse at you: never service: No Exam Narrative: Exam Narrative: Overweight,, well-developed patient in no acute distress. Alert and oriented. Answers questions appropriately. Mood and affect are appropriate. Thoughts are goal oriented and rational. No tangential or magical thinking noted. Patient speaks in full sentences without needing to catch his breath. HEENT: Normocephalic atraumatic. Pupils are equally round reactive to light. Extraocular muscles are intact. Conjunctivae are moist without any icterus noted. Moist mucous membranes. Cardiovascular: Irregularly irregular. Lungs: Clear to auscultation bilaterally no wheezes rhonchi or rales are appreciated. Patient takes deep breaths without any discomfort. Abdomen: Soft and nontender nondistended with normal bowel sounds. Protuberant. Extremities: Bilateral lower extremities are without edema. Skin: Well perfused without any obvious rashes. Const: Vital Signs, click to edit/add: Vital Signs - 24 hr 03/22/25 10:47 03/22/25 11:07 03/22/25 11:08 Temperature 96.8 F L Pulse Rate 100 121 H Pulse Rate [Right Pulse Oximeter] 90 Respiratory Rate 18 14 17 Blood Pressure 130/117 H Blood Pressure [Ri ght Upper Arm] 138/79 Pulse Oximetry 96 95 96 [facility] 03/22/25 11:10 03/22/25 11:15 03/22/25 11:22 Temperature Pulse Rate 121 H 105 H Pulse Rate [Right Pulse Oximeter] Respiratory Rate 19 18 Blood Pressure 104/89 Blood Pressure [Ri ght Upper Arm] Pulse Oximetry 96 95 96 Oxygen Delivery Me thod 03/22/25 11:30 03/22/25 11:40 03/22/25 11:42 Temperature Pulse Rate 92 92 83 Pulse Rate [Right Pulse Oximeter] Respiratory Rate 16 13 21 Blood Pressure 108/88 105/89 Blood Pressure [Ri ght Upper Arm] Pulse Oximetry 95 95 94 [facility] 03/22/25 11:45 Temperature Pulse Rate 110 H Pulse Rate [Right Pulse Oximeter] Respiratory Rate 15 Blood Pressure Blood Pressure [Ri ght Upper Arm] Pulse Oximetry 97 Oxygen Delivery Ne thod Course Course ED Course: EKG, read by me, shows atrial fibrillation with RVR, with a pulse of 148. IV established and patient is started on normal saline 20 mg of IV Cardizem. I did do labs today given that this is the patient's 2nd episode of AFib in the the last month to rule out any electrolyte abnormalities. Blood work unremarkable. Glucose elevated at 135, patient not technically fasting. After Cardizem and fluids patient's pulse did come down into the 1 teens. He remained asymptomatic. After discussing risks and benefits of cardioversion, patient wished to proceed. Sedation provided by Dr. Guerra. 100mg of propofol was used with great results. Patient was cardioverted with 200 joules, x1 attempt. He was awake and talking within 10 minutes of the procedure. Repeat EKG shows sinus bradycardia with a pulse of 57. Normal QRS, QTC and [place] intervals. Vital Signs Vital signs: Initial Vital Signs Temperature 96.8 F L 03/22/25 10:47 Temperature Source Temporal Artery Scan 03/22/25 10:47 Pulse Rate 90 03/22/25 10:47 Pulse Rhythm Regular 03/22/25 10:47 Pulse Strength 3+ Normal 03/22/25 10:47 Respiratory Rate 18 03/22/25 10:47 Blood Pressure 138/79 03/22/25 10:47 Blood Pressure Mean 98 03/22/25 10:47 Blood Pressure Position Sitting 03/22/25 10:47 Pulse Oximetry 96 03/22/25 10:47 Oxygen Delivery Method Room Air 03/22/25 10:47 Vital Signs Temperature 96.8 F L 03/22/25 10:47 Pulse Rate 90 03/22/25 10:47 Respiratory Rate 18 03/22/25 10:47 Blood Pressure 138/79 03/22/25 10:47 Pulse Oximetry 96 03/22/25 10:47 Oxygen Delivery Method Room Air 03/22/25 10:47 Temperature 96.8 F L 03/22/25 10:47 Pulse Rate 110 H 03/22/25 11:45 Respiratory Rate 15 03/22/25 11:45 Blood Pressure 105/89 03/22/25 11:42 Pulse Oximetry 97 03/22/25 11:45 Oxygen Delivery Method Room Air 03/22/25 10:47 Medications Administered Medications: Discontinued Medications Generic Name Dose Route Start Last Admin Trade Name Miguelq PRN Reason Stop Dose Admin Diltiazem HCl 20 mg 03/22/25 11:02 03/22/25 11:20 Diltiazem 5 Mg/Ml Inj IVP 03/22/25 11:03 20 mg ONCE ONE Administration Sodium Chloride 1,000 mls @ 1,000 mls/hr 03/22/25 11:15 03/22/25 11:20 0.9 % Sodium Chloride 1000 Ml IV 03/22/25 12:14 1,000 mls/hr .Q1H MICHELLE Administration Medical Decision Making MDM Narrative Medical decision making narrative: 64-year-old male with recurrent atrial fibrillation. Patient is anticoagulated. Recommend follow-up with cardiology to discuss next steps in management. Lab Data Lab results reviewed: Yes I reviewed the patient's lab results Labs: Lab Results 03/22/25 Range/Units 11:10 WBC 9.66 (4.50-11.00) K/uL RBC 5.23 (4.30-5.90) m/uL Hgb 15.6 (13.5-17.5) gm/dL Hct 47.0 (37.0-53.0) % MCV 90 (80-100) fL MCH 30 (26-34) pg MCHC 33 (32-36) gm/dL RDW Coeff of [place] 12.4 (11.5-15.5) % Plt Count 295 (140-440) K/uL Neut % (Auto) 78.8 H (42.0-72.0) % Lymph % (Auto) 11.4 L (20-44) % [place] % (Auto) 7.6 (0.0-11.0) % Eos % (Auto) 1.0 (0.0-7.0) % Baso % (Auto) 0.4 (0.0-3.0) % Neut # (Auto) 7.60 H (1.7-7.0) K/uL Lymph # (Auto) 1.10 (0.90-2.90) K/uL [place] # (Auto) 0.70 (0.00-0.90) K/UL Eos # (Auto) 0.10 (0.00-0.50) K/uL Baso # (Auto) 0.04 (0.00-0.30) K/uL Abs Immat Gran (auto) 0.08 (0.00-0.30) K/uL Imm/Tot Granulo (auto) 0.8 % Sodium 141 (135-149) mmol/L Potassium 3.9 (3.6-5.1) mmol/L Chloride 105 (96-114) mmol/L Carbon Dioxide 28 (20-32) mmol/L Anion Gap 8 (7-15) mEq/L BUN 22 (7-30) mg/dL Creatinine 0.9 (0.5-1.5) mg/dL Estimated GFR 95 ml/min Glucose 135 H (60-115) mg/dL Lactate 1.0 (0.5-1.9) mmol/L Calcium 9.1 (8.4-10.6) mg/dL Magnesium 2.0 (1.5-2.6) mg/dL Total Bilirubin 1.0 (0.1-1.5) mg/dL Direct Bilirubin 0.3 (0.0-0.5) mg/dL AST 29 (12-35) U/L ALT 28 (4-50) U/L Alkaline Phosphatase 107 (40-150) U/L Troponin I 0.01 (0.01-0.04) ng/mL Total Protein 8.0 (6.0-8.3) g/dL Albumin 4.4 (3.3-5.0) g/dL TSH 2.870 (0.270-4.20) uIU/mL ECG Data Attestation: I personally reviewed and interpreted this ECG as follows: Discharge Plan Discharge Clinical Impression: Atrial fibrillation with rapid ventricular response Patient Disposition: Home, Self-Care Condition: Improved Additional Instructions: It is recommended that you follow-up with your hearing healthcare practitioner to discuss next steps in management as this is your 2nd episode of atrial fibrillation in the last 4 weeks. Prescriptions: No Action vitamin B complex [B Complex-Vitamin B12] Tablet 1 tab PO DAILY sildenafil 100 mg tablet 100 mg PO Q24H PRN (Reason: sexual activity) Qty: 10 12RF metoprolol succinate 50 mg tablet extended release 24 hr 50 mg PO QDAY Qty: 90 3RF torsemide 20 mg tablet 20 mg PO DAILY 90 Days Qty: 100 3RF Rx Instructions: torsemide 20 mg daily and 20 mg PRN weight gain above 3 pounds in one day Eliquis 5 mg tablet 5 mg PO BID 90 Days Qty: 180 3RF candesartan 4 mg tablet 4 mg PO QDAY Qty: 90 3RF potassium gluconate 550 mg (90 mg) tablet 1,100 mg PO DAILY cholecalciferol (vitamin D3) 50 mcg (2,000 unit) capsule 50 mcg PO DAILY coenzyme Q10 100 mg capsule 100 mg PO DAILY acetaminophen 500 mg capsule 500 - 1,000 mg PO Q6H MDD 4000mg PRNQty: 100 0RF Follow Up/Referrals: Mary Ulrich, FORGING PRESS OPERATOR, RESOURCE TECHNICIAN [Primary Care Provider, Family Practice] Stand Alone Forms: MyHealth Info Instructions
[2025-03-22 11:18] LABS: Lactate* 1.0 mmol/L (0.5-1.9)
[2025-03-22] MEDS: dilTIAZem 5 MG/ML inj 20 MG IVP (11:20)
[2025-03-22 11:22] LABS: Hematocrit* 47.0 % (37.0-53.0); Hemoglobin* 15.6 gm/dL (13.5-17.5); Immature Granulocytes Abs Auto 0.08 K/uL (0.00-0.30); Immature Granulocytes Pct Auto 0.8 %; Lymphocytes Absolute Auto 1.10 K/uL (0.90-2.90); Mean Corpuscular HGB Conc 33 gm/dL (32-36); Mean Corpuscular Hemoglobin 30 pg (26-34); Mean Corpuscular Volume 90 fL (80-100); RDW Coefficient of Variation % 12.4 % (11.5-15.5); Red Blood Count* 5.23 m/uL (4.30-5.90); White Blood Count* 9.66 K/uL (4.50-11.00)
[2025-03-22 11:24] LABS: Slide Review Reflex No
[2025-03-22 11:33] LABS: Albumin* 4.4 g/dL (3.3-5.0)
[2025-03-22 11:34] LABS: Chloride* 105 mmol/L (96-114); Potassium* 3.9 mmol/L (3.6-5.1); Sodium* 141 mmol/L (135-149)
[2025-03-22 11:36] LABS: Anion Gap 8 mEq/L (7-15); Blood Urea Nitrogen* 22 mg/dL (7-30); Carbon Dioxide* 28 mmol/L (20-32); Creatinine* 0.9 mg/dL (0.5-1.5); Estimated Glomerular Filt Rate 95 ml/min
[2025-03-22 11:37] LABS: Alanine Aminotransferase* 28 U/L (4-50); Alkaline Phosphatase* 107 U/L (40-150); Aspartate Amino Transferase* 29 U/L (12-35); Bilirubin Direct* 0.3 mg/dL (0.0-0.5); Bilirubin Total* 1.0 mg/dL (0.1-1.5); Calcium* 9.1 mg/dL (8.4-10.6); Glucose* 135 mg/dL (60-115); Total Protein* 8.0 g/dL (6.0-8.3)
--- NOTE | 2025-03-22 11:39 | PC.NURSE ---
up to bathroom. tolerated well, remains in afib
--- NOTE | 2025-03-22 12:23 | PC.NURSE ---
pt cardioverted with 200 joules, kriss well, vss, HR 50's
--- NOTE | 2025-03-22 12:53 | PC.NURSE ---
see conscious sedation record
== END 2025-03-22 12:54 | disposition home or self-care (01) ==
PROVIDERS: Emergency Provider Family Medicine; PCP Nurse Practitioner Family
DX: I48.20 Chronic atrial fibrillation, unspecified (principal); Z79.01 Long term (current) use of anticoagulants
CPT/HCPCS: 36415; 80048; 80076; 83605; 83735; 84443; 84484; 85025; 92960; 93005; 94761; 99156; 99285; 99291; J7030